=== PATIENT | female | born 1995 | race Caucasian/White ===

== ENCOUNTER 2017-04-21 21:14 | Emergency (ER) | payer OTHER ==
[~2017-04-21] VITALS: Ht 165.1 cm; Wt 54.3 kg
[~2017-04-21 21:14] MED LIST: ALBUAER2 INH; LEVE500T PO
[2017-04-21 21:19] VITALS: Ht 165.1 cm; Wt 54.3 kg
[2017-04-21] MEDS ORDERED: IBUPROFEN 600 MG TAB PO STA (21:29)
[2017-04-21] MEDS ORDERED: VNTHFA/IN INH (21:41)
--- NOTE | 2017-04-21 22:02 | EMERGENCY ROOM VISIT NOTE ---
ED Visit Note First contact with patient: 21:24 CHIEF COMPLAINT: Wrist injury HISTORY OF PRESENT ILLNESS: This 21 yo patient presents to the emergency department with mother complaining of pain in the left wrist after getting it caught between the cheese and watermelons at work. This is a work-related injury. The patient is able to move their wrist. The patient states the pain is throbbing and 5/10. No laceration, no weakness. No numbness or tingling. The patient denies any other injury. The patient is able to move their fingers and elbow without difficulty. The patient has not had a previous fracture to this wrist. The patient has taken nothing for the pain. REVIEW OF SYSTEMS: A 6 system review of systems was performed with positives and pertinent negatives in the HPI. ALLERGIES: sulfa MEDICATIONS: reviewed PMH: Seizure disorder SOCIAL HISTORY: No drug use PHYSICAL EXAM: Vital Signs: Reviewed Nurse's notes, vital signs stable. GENERAL : Pleasant female, in no acute distress, but appears to be in pain, well- developed, well-neurished. NEURO: Alert and oriented to person place and time. Normal sensation to light and sharp touch. MUSCULOSKELETAL: There is no deformity of the left wrist. There is tenderness and edema over distal ulna. There is no snuff box tenderness. Range of motion is intact. There is no tenderness of the elbow, hand or fingers. Time Study Clerk strength 5/5. Radial pulse 2+. SKIN: Normal and intact. The hand is warm and well perfused with capillary refill less than 2 seconds. EMERGENCY DEPARTMENT COURSE: I examined the patient. An X-ray of the left wrist was reviewed by myself and attending and showed no fracture. Ice pack and Motrin was given. She was advised to follow-up with orthopedics if symptoms persist or here in the ER sooner for severe pain, numbness, tingling, worsening signs or symptoms or as needed. She was advised to make sure this is approved to her work as this is a work related injury. The patient was discharged home in good condition. DIAGNOSIS: #1 Wrist injury, left #2 work-related injury DISCHARGE INSTRUCTIONS & TREATMENT: As below Current/Historical Medications Scheduled Levetiractam (Levetiracetam), 500 MG PO BID Scheduled PRN Albuterol Hfa (Ventolin Hfa), 2 PUFFS INH QID PRN for Wheezing Allergies Coded Allergies: Sulfa Drugs (Verified Allergy, Unknown, HIVES, 04/21/17) Vital Signs Date Time Temp Pulse Resp B/P (MAP) Pulse Ox O2 Delivery O2 Flow Rate FiO2 04/21/17 21:19 37.1 80 16 116/64 97 Room Air Medications Administered Medications (Trade) Dose Ordered Sig/Annmarie Route Start Time Stop Time Status Last Admin Dose Admin Ibuprofen (Motrin Tab) 600 mg NOW STAT PO 04/21/17 21:29 04/21/17 21:31 DC 04/21/17 21:55 600 MG Departure Information Impression Primary Impression: Left wrist injury Additional Impression: Work related injury Dispostion Home / Self-Care Condition GOOD Referrals Serjio Montenegro M.D. Forms WORK / SCHOOL INSTRUCTIONS, HOME CARE DOCUMENTATION FORM, IMPORTANT VISIT INFORMATION Patient Instructions [facility] Additional Instructions Ibuprofen(Motrin, Advil) may be used for fever or pain. Use 600mg every six hours as needed. Take with food. Avoid using more than 2400mg in a 24 hour period. Do not use 2400mg per day for more than three consecutive days without physician direction. Prolonged inappropriate use can lead to stomach upset or ulcers. This medication can be taken if you need to drive, work, or perform activities which may be dangerous when taking narcotic pain medication. (AND/OR) Acetaminophen(Tylenol) may be used for fever or pain. Use 1000mg every six hours as needed. Avoid using more than 3000mg in a 24 hour period. This medication can be taken if you need to drive, work, or perform activities which may be dangerous when taking narcotic pain medication. Ice compresses for 20 minutes at a time four times daily for 2-3 days. Rest and elevate your injury. Continue current medications. Return to the ER immediately for any numbness, tingling, severe pain, extreme swelling in the extremity or as needed. Call Orthopedics in 3-5 days if symptoms persist to arrange follow up for your injury. Make sure this is improved through your work as this is a work related injury. Problem Qualifiers
[2017-04-21 22:11] VITALS: BP 116/64; PULSE 80; TEMP 37.1; O2SAT 97
--- NOTE | 2017-04-21 22:12 | DIAGNOSTIC IMAGING REPORT ---
LEFT WRIST MIN 3 VIEWS ROUTINE CLINICAL HISTORY: Wrist pain following injury. COMPARISON: Left wrist radiographs August 05, 2013. FINDINGS: Alignment of the left wrist is anatomic. There is no acute fracture. Distal left radius and ulna are unremarkable. IMPRESSION: No acute fracture or dislocation of the left wrist. Electronically signed by: Mason Milligan M.D. 04/21/2017 10:11 PM Dictated Date/Time: 04/21/2017 10:10 PM
== END 2017-04-21 22:11 | disposition home or self-care (01) ==
LOC: C.EDB 21:16 → C.EDD 22:11
DX: S69.92XA Unspecified injury of left wrist, hand and finger(s), initial encounter (principal); W23.1XXA Caught, crushed, jammed, or pinched between stationary objects, initial encounter; Y99.0 Civilian activity done for income or pay; G40.909 Epilepsy, unspecified, not intractable, without status epilepticus

== ENCOUNTER → 2017-06-17 | Outpatient (CLI) | payer OTHER ==
[~2017-06-17] MED LIST changes: -ALBUAER2 INH; +VNTHFA/IN INH
[2017-06-17 15:49] LABS: BASO % 0.6 %; BASO ABS # 0.03 K/uL (0-0.2); COMPLETE YES; EOS % 1.7 %; HEMATOCRIT 39.7 % (37-47); IG% 0.4 %; LYMPH % 25.9 %; LYMPH ABS # 1.38 K/uL (1.2-3.4); MEAN CELL VOLUME 88.2 fL (80-100); MEAN CORPUSCULAR HEMOGLOBIN 28.9 pg (25-34); MEAN CORPUSCULAR HGB CONC 32.7 g/dl (32-36); MEAN PLATELET VOLUME 9.7 fL (7.4-10.4); MONO % 6.4 %; PLATELET COUNT 323 K/uL (130-400); WHITE BLOOD COUNT 5.33 K/uL (4.8-10.8)
[2017-06-17 16:22] LABS: ALT/SGPT 16 U/L (12-78); BLOOD UREA NITROGEN 12 mg/dl (7-18); BUN/CREATININE RATIO 13.9 (10-20); CALCIUM 9.2 mg/dl (8.5-10.1); CARBON DIOXIDE 30 mmol/L (21-32); CHLORIDE 105 mmol/L (98-107); CREATININE 0.85 mg/dl (0.60-1.20); GLUCOSE 80 mg/dl (70-99); POTASSIUM 3.6 mmol/L (3.5-5.1); SODIUM 140 mmol/L (136-145)
[2017-06-17 16:33] LABS: ALB/GLOB RATIO 1.1 (0.9-2); ALKALINE PHOSPHATASE 77 U/L (45-117); AST/SGOT 17 U/L (15-37); THYROID STIMULATING HORMONE 0.869 uIu/ml (0.300-4.500)
== END | disposition home or self-care (01) ==
LOC: C.LAB1850 14:10
PROVIDERS: ATTEND Internal Medicine
DX: Z71.3 Dietary counseling and surveillance (principal); G40.909 Epilepsy, unspecified, not intractable, without status epilepticus

== ENCOUNTER 2017-11-26 17:33 | Emergency (ER) | payer OTHER ==
[~2017-11-26] VITALS: Ht 165.1 cm; Wt 55.8 kg
[2017-11-26 17:37] VITALS: TEMP 36.6; Ht 165.1 cm; Wt 55.8 kg
--- NOTE | 2017-11-26 18:01 | EMERGENCY ROOM VISIT NOTE ---
ED Visit Note First contact with patient: 17:41 CHIEF COMPLAINT: Tampon stuck in vagina HISTORY OF PRESENT ILLNESS: This 22-year-old female patient presents to the emergency department 6 hours after insertion of a tampon to her vagina. The patient states this evening, she was attempting to remove the tampon, but was unable to locate the string. She states she believes the tampon has gotten stuck within her vagina. She denies any abnormal bleeding, pelvic pain or cramping, vaginal discharge, or dysuria. This has never happened in the past. The patient came immediately to the emergency department when she was unable to locate the tampon. REVIEW OF SYSTEMS: A 6 system review of systems was performed with positives and pertinent negatives listed in the history of present illness. All other systems were reviewed and are negative. ALLERGIES: Sulfa MEDICATIONS: Keppra PMH: Epilepsy SOCIAL HISTORY: The patient lives locally with family. She denies drug, alcohol , tobacco use. PHYSICAL EXAM: VITALS: Vitals are noted on the nurse's note and reviewed by myself. Vital signs stable. GENERAL: This is a 22-year-old white female, in no acute distress, nondiaphoretic, well-developed well-nourished. SCREENING TECH - (An RN nurse glassware maker demonstrator was present throughout the entire SCREENING TECH procedure.) - MONS - Umair Stage V. No lesions or growths noted. No palpable inguinal lymph nodes. - VULVA - skin color consistent with surrounding structures. No signs of irritation, edema, lesions, growths, or discharge. No vulvar or clitoral adhesions. No tenderness to palpation. - PERINEUM - No growths or lesions. Skin intact without breakdown or scars. - BARTHOLIN'S GLANDS/SKENE'S GLANDS - No enlargement or discharge noted. No tenderness with palpation. - URETHRA - No erythema, edema, discharge, or blood noted. SPECULUM EXAM: - Water-soluble lubricant was applied to the plastic speculum and inserted into the vagina in a downward fashion towards the location of the cervix. When resistance was met, the speculum was opened to visualize the foreign body/ tampon. This was easily removed with sponge forceps. The cervical os was closed and no drainage. No lesions, masses, or purulent discharge noted. The speculum was slowly removed to visualize the vaginal hoffmann. No lesions, masses, or excoriations noted. Pt tolerated the procedure well and voiced no discomfort throughout the procedure. EMERGENCY DEPARTMENT COURSE: The patient was seen and evaluated as above. Verbal consent was obtained to perform the vaginal examination and for removal of the foreign body. The tampon was removed without complication. The patient tolerated the procedure well. Discharge instructions reviewed, the patient was discharged home in good condition. I attest that I have personally reviewed the patient's current medication list. Patient was found to have normal blood pressure on screening and does not require follow-up. Differential diagnosis: foreign body in vagina, infection, STD, and others DIAGNOSIS: Foreign body in vagina - removed Current/Historical Medications Scheduled Levetiractam (Levetiracetam), 500 MG PO BID Allergies Coded Allergies: Sulfa Drugs (Verified Allergy, Unknown, HIVES, 11/26/17) Vital Signs Date Time Temp Pulse Resp B/P (MAP) Pulse Ox O2 Delivery O2 Flow Rate FiO2 11/26/17 18:09 88 16 108/62 97 11/26/17 17:37 36.6 81 20 121/76 98 Room Air Departure Information Impression Primary Impression: Vaginal foreign body Dispostion Home / Self-Care Condition GOOD Referrals No Doctor, Assigned (PCP) Patient Instructions ED Foreign Body Vaginal, [facility] Additional Instructions You were seen in the emergency department today for a vaginal foreign body - Tampon. This was successfully removed. Please do not place any other foreign bodies, including tampons, into the vagina until directed otherwise by your PCP/tank hoop bender. Return to the ED for any fevers, chills, nausea, vomiting, headache, dizziness, abnormal vaginal discharge or bleeding, or other concerning symptoms. Problem Qualifiers Primary Impression: Vaginal foreign body Encounter type: initial encounter Qualified Codes: T19.2XXA - Foreign body in vulva and vagina, initial encounter
[2017-11-26 18:09] VITALS: BP 108/62; PULSE 88; O2SAT 97
== END 2017-11-26 18:09 | disposition home or self-care (01) ==
LOC: C.EDB 17:35 → C.EDD 18:09
DX: T19.2XXA Foreign body in vulva and vagina, initial encounter (principal); X58.XXXA Exposure to other specified factors, initial encounter; G40.909 Epilepsy, unspecified, not intractable, without status epilepticus; Z88.2 Allergy status to sulfonamides

== ENCOUNTER → 2017-11-29 | Outpatient (CLI) | payer OTHER ==
[~2017-11-29] MED LIST changes: -VNTHFA/IN INH
== END | disposition home or self-care (01) ==
LOC: C.LABSPEC 13:25
PROVIDERS: ATTEND Physician Assistant
DX: Z01.419 Encounter for gynecological examination (general) (routine) without abnormal findings (principal)

== ENCOUNTER → 2017-11-29 | Outpatient (CLI) | payer OTHER | END | disposition home or self-care (01) | LOC: C.PAPS 13:47 | PROVIDERS: ATTEND Physician Assistant | DX: Z01.419 Encounter for gynecological examination (general) (routine) without abnormal findings (principal) ==

== ENCOUNTER 2018-05-09 17:04 | Emergency (ER) | payer OTHER ==
[~2018-05-09] VITALS: Ht 165.1 cm; Wt 57.0 kg
[~2018-05-09 17:04] MED LIST changes: +VNTHFA/IN INH
[2018-05-09 17:18] VITALS: TEMP 36.4; Ht 165.1 cm; Wt 57.0 kg
--- NOTE | 2018-05-09 18:09 | EMERGENCY ROOM VISIT NOTE ---
History Report prepared by Yash: Wilber Arita Under the Supervision of: Dr. Zhang Xiong M.D. First contact with patient: 18:05 Chief Complaint: ABDOMINAL PAIN Stated Complaint: PAIN IN RIGHT SIDE AB Nursing Triage Summary: Patient ambulatory to triage with an upright and steady gait, states "I started to having pain in my right lower abdomen last night. It went away for a while. Today, around 1530, the pain started to come back." Patient denies any nausea, vomiting, diarrhea, constipation, urinary symptoms, vaginal discharge or bleeding. History of Present Illness The patient is a 22 year old female who presents to the Emergency Room with complaints of intermittent abdominal pain that started yesterday that she describes as a sharp sensation. Pain is located in the right lower quadrant. She states the pain is sharp. No radiation of the pain. She states the pain started last night. The patient denies nausea, vomiting, hematochezia, hematuria, fevers, vaginal bleeding and vaginal discharge. Source of History: patient Onset: Yesterday Position: abdomen Quality: sharp Timing: intermittent Associated Symptoms: No fevers, No nausea, No vomiting, No melena, No hematochezia, No urinary symptoms Review of Systems See HPI for pertinent positives and negatives. A total of ten systems were reviewed and were otherwise negative. Family History Diabetes mellitus Social History Smoking Status: Never Smoker Alcohol Use: none Drug Use: none Marital Status: single Occupation Status: student Current/Historical Medications Scheduled Levetiractam (Levetiracetam), 500 MG PO BID Scheduled PRN Albuterol Hfa (Ventolin Hfa), 2 PUFFS INH Q6H PRN for Shortness of Breath Allergies Coded Allergies: Sulfa Drugs (Verified Allergy, Unknown, HIVES, 05/09/18) Physical Exam Vital Signs Date Time Temp Pulse Resp B/P (MAP) Pulse Ox O2 Delivery O2 Flow Rate FiO2 05/09/18 20:35 76 18 105/67 98 05/09/18 19:53 58 16 111/71 99 Room Air 05/09/18 19:03 51 16 104/66 97 Room Air 05/09/18 17:18 36.4 62 16 130/77 98 Room Air Physical Exam Physical Exam GENERAL: She is oriented to person, place, and time. She appears well- developed and well-nourished. She does not appear distressed. HENT: Exam performed. Head: Normocephalic and atraumatic. Right Ear: External ear normal. No mastoid tenderness. Left Ear: External ear normal. No mastoid tenderness. Mouth/Throat: The oropharynx is clear and moist. No trismus in the jaw. No dental abscesses or uvula swelling. No oropharyngeal exudate or tonsillar abscesses. EYES: Conjunctivae and EOM are normal. Pupils are equal, round, and reactive to light. Right eye exhibits no discharge. Left eye exhibits no discharge. No scleral icterus. NECK: Normal range of motion. Neck supple. No JVD present. No spinous process tenderness present. No carotid bruit present. No rigidity. No tracheal deviation and normal range of motion present. No Brudzinski's sign and no Kernig 's sign noted. CV: Normal rate, regular rhythm, normal heart sounds and intact distal pulses. There is no peripheral edema. Palpable radial pulses bue. PULM/CHEST: Effort normal and breath sounds normal. No respiratory distress. No stridor. She has no wheezes. She has no rales. Chest Wall: She exhibits no tenderness. ABD: The abdomen is soft. Bowel sounds are normal. She has no distension. No mass is present. There is no tenderness. There is no rebound, no guarding, no Sainz's sign and no tenderness at McBurney's point. Rovsig positive. Pain and palpation to RLQ and LLQ. MUSC/SKEL: Normal range of motion. There is no peripheral edema, tenderness or deformity. LYMPH: No cervical adenopathy. NEURO: She is alert and oriented to person, place, and time. She has normal strength. No cranial nerve deficit or sensory deficit. Coordination and gait normal. GCS eye subscore is 4. GCS verbal subscore is 5. GCS motor subscore is 6. Cerebellar tests wnl. SKIN: Skin is warm and dry. She is not diaphoretic. PSYCH: She has a normal mood and affect. Behavior is normal. Judgment and thought content normal. Medical Decision & Procedures ER Provider Diagnostic Interpretation: Radiology results as stated below per my review and radiologist interpretation: PELVIC ULTRASOUND, TRANSABDOMINAL AND TRANSVAGINAL HISTORY: Right lower quadrant pain. COMPARISON: None. FINDINGS: Uterus: 7.0 x 3.8 x 4.3 cm. No uterine masses. Endometrial stripe: 6 mm in thickness. Right ovary: Normal in size and demonstrates normal color flow. Left ovary: Normal in size and demonstrates normal color flow. Miscellaneous:Trace pelvic free fluid. IMPRESSION: No significant abnormality identified within the pelvis. Trace pelvic free fluid which is likely physiologic. Electronically signed by: Po Tabares M.D. 05/09/2018 8:00 PM Dictated Date/Time: 05/09/2018 7:[address] OF THE ABDOMEN AND PELVIS WITH CONTRAST CLINICAL HISTORY: Right lower quadrant abdominal pain. COMPARISON STUDY: Abdominal ultrasound February 09, 2012. TECHNIQUE: Following IV administration of 94 mL of Optiray-320, axial images of the abdomen and pelvis were obtained from the lung bases to the proximal femurs. Images were reviewed in the axial, sagittal, and coronal planes. IV contrast was administered without complication. A dose lowering technique was utilized adhering to the principles of ALARA. CT DOSE: 265.71 mGy.cm FINDINGS: Lung bases are clear. Liver, spleen, adrenal glands, kidneys and pancreas are normal. There is no biliary or pancreatic ductal dilatation. There is no peripancreatic or pericholecystic infiltration. There is no hydronephrosis. Both nephrograms are symmetric. Trace fluid within the pelvis is noted. There is mild distention of the bladder. The caliber and wall thickness of small and large bowel are normal. The appendix is normal. IMPRESSION: 1. Normal appendix. No bowel obstruction. 2. Trace fluid within pelvis which is likely physiologic. Electronically signed by: Mason Milligan M.D. 05/09/2018 6:47 PM Dictated Date/Time: 05/09/2018 6:42 PM Laboratory Results 05/09/18 18:25 Red Blood Count 4.37, Mean Corpuscular Volume 87.9, Mean Corpuscular Hemoglobin 29.3, Mean Corpuscular Hemoglobin Concent 33.3, Mean Platelet Volume 10.0, Neutrophils (%) (Auto) 72.7, Lymphocytes (%) (Auto) 16.7, Monocytes (%) (Auto) 8.8, Eosinophils (%) (Auto) 1.1, Basophils (%) (Auto) 0.5, Neutrophils # (Auto) 4.71, Lymphocytes # (Auto) 1.08, Monocytes # (Auto) 0.57, Eosinophils # (Auto) 0.07, Basophils # (Auto) 0.03 05/09/18 18:25 Test 05/09/18 18:25 05/09/18 19:03 White Blood Count 6.47 K/uL (4.8-10.8) Red Blood Count 4.37 M/uL (4.2-5.4) Hemoglobin 12.8 g/dL (12.0-16.0) Hematocrit 38.4 % (37-47) Mean Corpuscular Volume 87.9 fL (80-100) Mean Corpuscular Hemoglobin 29.3 pg (25-34) Mean Corpuscular Hemoglobin Concent 33.3 g/dl (32-36) Platelet Count 244 K/uL (130-400) Mean Platelet Volume 10.0 fL (7.4-10.4) Neutrophils (%) (Auto) 72.7 % Lymphocytes (%) (Auto) 16.7 % Monocytes (%) (Auto) 8.8 % Eosinophils (%) (Auto) 1.1 % Basophils (%) (Auto) 0.5 % Neutrophils # (Auto) 4.71 K/uL (1.4-6.5) Lymphocytes # (Auto) 1.08 K/uL (1.2-3.4) Monocytes # (Auto) 0.57 K/uL (0.11-0.59) Eosinophils # (Auto) 0.07 K/uL (0-0.5) Basophils # (Auto) 0.03 K/uL (0-0.2) RDW Standard Deviation 40.8 fL (36.4-46.3) RDW Coefficient of Variation 12.7 % (11.5-14.5) Immature Granulocyte % (Auto) 0.2 % Immature Granulocyte # (Auto) 0.01 K/uL (0.00-0.02) Anion Gap 8.0 mmol/L (3-11) Est Creatinine Clear Calc Drug Dose 81.7 ml/min Estimated GFR () 95.6 Estimated GFR (Non- 82.5 BUN/Creatinine Ratio 9.2 (10-20) Calcium Level 9.0 mg/dl (8.5-10.1) Total Bilirubin 0.5 mg/dl (0.2-1) Direct Bilirubin 0.1 mg/dl (0-0.2) Aspartate Amino Transf (AST/SGOT) 15 U/L (15-37) Alanine Aminotransferase (ALT/SGPT) 19 U/L (12-78) Alkaline Phosphatase 61 U/L (45-117) Total Protein 7.6 gm/dl (6.4-8.2) Albumin 3.9 gm/dl (3.4-5.0) Lipase 80 U/L (73-393) Urine Color YELLOW Urine Appearance CLEAR (CLEAR) Urine pH 5.5 (4.5-7.5) Urine Specific Guild 1.018 (1.000-1.030) Urine Protein NEG (NEG) Urine Glucose (UA) NEG (NEG) Urine Ketones NEG (NEG) Urine Occult Blood NEG (NEG) Urine Nitrite NEG (NEG) Urine Bilirubin NEG (NEG) Urine Urobilinogen NEG (NEG) Urine Leukocyte Esterase NEG (NEG) Urine Test NEG (NEG) Laboratory results reviewed by me ED Course 1806: The patient was evaluated in room B3. A complete history and physical exam was performed. 1904: The patient's vital signs are stable. Her labs and imaging tests are within normal limits. I repeated the abdomen exam and she was still having intermittent pain in the RLQ. I will order an ultrasound to rule out ovarian torsion. 2023: Vital signs are stable. Ultrasound was negative so the patient will be discharged and follow up with PCP. Patient denies any vaginal bleeding or vaginal discharge, she states she is in a monogamous relationship and there is no risk for STD. Pelvic exam declined. DISCHARGE - Plan of care discussed with patient and questions answered. The patient was given both verbal and printed discharge instructions. The patient verbalized understanding and ability to comply. The patient is to seek outpatient follow up as noted in the discharge instructions. The patient verbalized understanding and ability to comply. The patient is discharged in stable condition. The patient was instructed to return for worsening symptoms. Medical Decision 1806: The patient was evaluated in room B3. A complete history and physical exam was performed. 1904: The patient's vital signs are stable. Her labs and imaging tests are within normal limits. I repeated the abdomen exam and she was still having intermittent pain in the RLQ. I will order an ultrasound to rule out ovarian torsion. 2023: Vital signs are stable. Ultrasound was negative so the patient will be discharged and follow up with PCP. Patient denies any vaginal bleeding or vaginal discharge, she states she is in a monogamous relationship and there is no risk for STD. Pelvic exam declined. DISCHARGE - Plan of care discussed with patient and questions answered. The patient was given both verbal and printed discharge instructions. The patient verbalized understanding and ability to comply. The patient is to seek outpatient follow up as noted in the discharge instructions. The patient verbalized understanding and ability to comply. The patient is discharged in stable condition. The patient was instructed to return for worsening symptoms. Medication Reconcilliation Current Medication List: was personally reviewed by me Blood Pressure Screening Patient's blood pressure: Normal blood pressure Impression Primary Impression: Right lower quadrant abdominal pain Scribe Attestation The scribe's documentation has been prepared under my direction and personally reviewed by me in its entirety. I confirm that the note above accurately reflects all work, treatment, procedures, and medical decision making performed by me. The chart was completed utilizing [employer] Speech voice recognition software. Grammatical errors, random word insertions, pronoun errors, and incomplete sentences are an occasional consequence of this system due to software limitations, ambient noise, and hardware issues. Any formal questions or concerns about the content, text, or information contained within the body of this dictation should be directly addressed to the physician for clarification. Departure Information Dispostion Home / Self-Care Referrals RV. Da Silva MD (PCP) Forms HOME CARE DOCUMENTATION FORM, IMPORTANT VISIT INFORMATION Patient Instructions [facility]
[2018-05-09] MEDS ORDERED: OPTIRAY 320 IV PRN (18:15)
[2018-05-09 18:36] LABS: BASO % 0.5 %; BASO ABS # 0.03 K/uL (0-0.2); EOS % 1.1 %; EOS ABS # 0.07 K/uL (0-0.5); HEMATOCRIT 38.4 % (37-47); HEMOGLOBIN 12.8 g/dL (12.0-16.0); IG# 0.01 K/uL (0.00-0.02); LYMPH % 16.7 %; LYMPH ABS # 1.08 K/uL (1.2-3.4); MEAN CELL VOLUME 87.9 fL (80-100); MEAN CORPUSCULAR HEMOGLOBIN 29.3 pg (25-34); MEAN CORPUSCULAR HGB CONC 33.3 g/dl (32-36); MONO % 8.8 %; MONO ABS # 0.57 K/uL (0.11-0.59); NEUT % 72.7 %; NEUT ABS # 4.71 K/uL (1.4-6.5); PLATELET COUNT 244 K/uL (130-400); RED CELL DISTRIBUTION WIDTH CV 12.7 % (11.5-14.5); RED CELL DISTRIBUTION WIDTH SD 40.8 fL (36.4-46.3); WHITE BLOOD COUNT 6.47 K/uL (4.8-10.8)
--- NOTE | 2018-05-09 18:48 | DIAGNOSTIC IMAGING REPORT ---
CT OF THE ABDOMEN AND PELVIS WITH CONTRAST CLINICAL HISTORY: Right lower quadrant abdominal pain. COMPARISON STUDY: Abdominal ultrasound February 09, 2012. TECHNIQUE: Following IV administration of 94 mL of Optiray-320, axial images of the abdomen and pelvis were obtained from the lung bases to the proximal femurs. Images were reviewed in the axial, sagittal, and coronal planes. IV contrast was administered without complication. A dose lowering technique was utilized adhering to the principles of ALARA. CT DOSE: 265.71 mGy.cm FINDINGS: Lung bases are clear. Liver, spleen, adrenal glands, kidneys and pancreas are normal. There is no biliary or pancreatic ductal dilatation. There is no peripancreatic or pericholecystic infiltration. There is no hydronephrosis. Both nephrograms are symmetric. Trace fluid within the pelvis is noted. There is mild distention of the bladder. The caliber and wall thickness of small and large bowel are normal. The appendix is normal. IMPRESSION: 1. Normal appendix. No bowel obstruction. 2. Trace fluid within pelvis which is likely physiologic. Electronically signed by: Mason Milligan M.D. 05/09/2018 6:47 PM Dictated Date/Time: 05/09/2018 6:42 PM
[2018-05-09 18:55] LABS: ALBUMIN 3.9 gm/dl (3.4-5.0); CREATININE 0.98 mg/dl (0.60-1.20); POTASSIUM 3.6 mmol/L (3.5-5.1); TOTAL PROTEIN 7.6 gm/dl (6.4-8.2)
--- NOTE | 2018-05-09 20:01 | DIAGNOSTIC IMAGING REPORT ---
PELVIC ULTRASOUND, TRANSABDOMINAL AND TRANSVAGINAL HISTORY: Right lower quadrant pain. COMPARISON: None. FINDINGS: Uterus: 7.0 x 3.8 x 4.3 cm. No uterine masses. Endometrial stripe: 6 mm in thickness. Right ovary: Normal in size and demonstrates normal color flow. Left ovary: Normal in size and demonstrates normal color flow. Miscellaneous:Trace pelvic free fluid. IMPRESSION: No significant abnormality identified within the pelvis. Trace pelvic free fluid which is likely physiologic. Electronically signed by: Po Tabares M.D. 05/09/2018 8:00 PM Dictated Date/Time: 05/09/2018 7:59 PM
[2018-05-09 20:35] VITALS: BP 105/67; PULSE 76; O2SAT 98
== END 2018-05-09 20:35 | disposition home or self-care (01) ==
LOC: C.EDB 17:06
DX: R10.31 Right lower quadrant pain (principal); Z88.2 Allergy status to sulfonamides

== ENCOUNTER 2023-05-18 07:38 | Inpatient (IN) ==
--- NOTE | 2023-05-18 07:53 | History & Physical Report ---
Date of Service May 18, 2023 Assessment & Plan (1) Encounter for induction of labor: Plan: labor management (2) Asthma: Plan: albuterol PRN (3) Epilepsy: Plan: Keppra 1g BID (4) Mitral regurgitation: Plan: No concerns per cardiology Plan 27 yo at 40w2d with PMHx epilepsy on keppra, asthma, mitral regurg, thyromegaly here for induction of labor. Admission and Anticipated Discharge Date Admission Date: May 18, 2023 History of Present Illness Primary Care Provider: Bernardino Pandey MD Radha is a 27 yo at 40w2d with PMHx epilepsy on keppra, asthma, mitral regurg, thyromegaly here for induction of labor. She had a choudhary bulb placed 05/17/23, tolerated well, came out this AM. She is GBS negative. Mom is doing well. No seizure activity for at least one year. No concerns from cardiology re: mitral regurgitation. FOB is present. Allergies Allergy/AdvReac Type Severity Reaction Status Date / Time Tetanus Vaccines and Toxoid Allergy Severe BECAME Verified 05/17/23 14:45 SHORT OF BREATH Sulfa (Sulfonamide Allergy Unknown HIVES Verified 05/17/23 14:45 Antibiotics) Home Medications Medication Instructions Recorded Confirmed Type albuterol sulfate 90 mcg/actuation 2 inh inhalation QID PRN shortness 10/13/21 05/18/23 Rx aerosol inhaler of breath or wheezing #1 g folic acid 1 mg tablet 1 mg PO DAILY 02/25/22 05/18/23 History prenat.vits,terry,[id number] 1 tab PO DAILY 10/15/22 05/18/23 History levetiracetam 1,000 mg tablet 1,000 mg PO BID 30 days #60 tabs 03/03/23 05/18/23 Rx ferrous sulfate 325 mg (65 mg 325 mg PO DAILY 05/17/23 05/18/23 History iron) tablet (iron) Past Med/Surg History Medical History (Updated 05/18/23 @ 08:26 by Alvarez Mcgraw DO) Asthma Encounter for monitoring anticonvulsant therapy Enlargement of thyroid Epilepsy History of abnormal electrocardiogram Lunate fracture, closed Mitral regurgitation Mouth lesion Right lower quadrant abdominal pain Seizure disorder Syncope Surgical History S/P wisdom tooth extraction Family History Aunt Thyroid cancer Breast cancer great Mother Diabetes Thyroid disease Asthma Thyroid cancer Uncle Schizoaffective disorder Grandmother (Maternal) Thyroid cancer Other Hypercholesterolemia Hypertension Denies family history of Ovarian cancer Prostate cancer Myocardial infarction Colorectal cancer Stroke Social History Smoking Status: Never smoker Second Hand Exposure: Yes (at work); Do You Dip or Chew Tobacco: No; Hx Alcohol Use: No Hx Substance Use: No Preferred Language: Bahamian Communication Ability: Effective Visual Impairment: No Limitations Hearing Ability: Normal Medicine Tech Required: No Beliefs That Will Affect Care: None marital status: marital status details: Oskar- [phone], Spouse: Meka Current Living Situation: Spouse Current Living Situation Comment: lives with spouse and 2 dogs, current occupational status: employed 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 [employer] Other Information That Helps Us Care for You: No Feels Safe at Home: Yes Safety Concerns: Feels Safe At This Time Childhood Exposure to Second-Hand Smoke: No Dental Care, Regularly: Yes Physical Activity Frequency: 5-6 Times per Week Physical Activity Frequency Comment: running Seatbelt Use: always Sunscreen Use: Yes Assistive Devices: Glasses Review of Systems Review of Systems: reviewed, per HPI Physical Exam Physical Exam: General: patient resting comfortably, NAD, non-toxic in appearance, AA&O x 4, answers questions appropriately Skin: warm, dry, intact HEENT: NC/AT, anicteric sclera, conjunctiva without injection, moist mucus membranes Heart: +S1/S2, regular, no m/r/g Lungs: equal air entry bilaterally, no rales/rhonchi/wheezes Abd: +BS, soft, NT/ND, gravid uterus Ext: warm, no clubbing/cyanosis or edema Neuro: nonfocal, patient AA&O x 4, speech intact, no facial droop, moving all extremities on command. Results & Data Results & Data Vital Signs (Past 12 Hours) Vital Signs Pulse BP 05/18/23 07:46 80 128/69 Supervising Physician Co-Signing Physician Notes Resident Physician Supervision Note: I interviewed and examined the patient. Discussed with Dr. Mcgraw and agree with findings and plan as documented in the note. Any exceptions or clarifications are listed here: 27yo @ 40 11/03, IOL. Now s/p choudhary bulb, start pitocin. Patient agreeable with plan. Cervix exam /-2/soft/mid. Documented By: Tami Wilson, DO Resident Activity Tracking Resident Involvement: Resident Care Provided Care Provided: Adult Hospital Medicine (3) Epilepsy Epilepsy type: unspecified Intractability: not intractable Status epilepticus: without status epilepticus Qualified Code(s): G40.909 - Epilepsy, unspecified, not intractable, without status epilepticus
[2023-05-18] MEDS ORDERED: OXYTOCIN 30 UNITS/500 ML BAG IV PRN ×2 (08:18)
[2023-05-18] MEDS ORDERED: LIDOCAINE 1% LOCAL 20 ML VIAL INFIL PRN (08:18)
[2023-05-18] MEDS ORDERED: ALBUTEROL HFA 8 GM INHALER INH PRN (08:21)
[2023-05-18 08:56] LABS: Hematocrit (blood only) 37.8 % (37.0-47.0); Hemoglobin 12.6 g/dl (12.0-16.0); Mean Corpuscular Hemoglobin 29.7 pg (25.0-34.0); Mean Corpuscular Hgb Conc 33.3 g/dL (32.0-36.0); Mean Corpuscular Volume 89.2 fL (80.0-100.0); Mean Platelet Volume 11.2 fL (9.4-12.4); Platelet Count 210 K/uL (130-400); RDW Coefficient of Variation 13.8 % (11.5-14.5); Red Blood Count 4.24 M/uL (4.20-5.40)
[2023-05-18] MEDS ORDERED: FERROUS SULFATE 325 MG TAB PO SCH (09:00)
[2023-05-18] MEDS ORDERED: PRENATAL VITAMIN 1 TAB PO SCH (09:00)
[2023-05-18] MEDS ORDERED: FOLIC ACID 1 MG TAB PO SCH (09:00)
[2023-05-18] MEDS: levETIRAcetam 500 MG TAB PO SCH ×2 (09:26→20:59)
[2023-05-18] MEDS: LACTATED RINGER'S 1,000 ML IV PRN ×3 (09:47→19:58)
[2023-05-18] MEDS ORDERED: fentaNYL citrate PF 100 MCG/2 ML VIAL ONE (14:55)
[2023-05-18] MEDS ORDERED: BUPIVACAINE 0.25% PF 30 ML VIAL ONE (14:56)
[2023-05-18] MEDS ORDERED: ePHEDrine sulfate 50 MG/ML AMP ONE (14:56)
[2023-05-18] MEDS ORDERED: SODIUM CHLORIDE 0.9% PF INJ 10 ML VIAL ONE (14:56)
[2023-05-18] MEDS ORDERED: LIDOCAINE 2%/EPINEPHRINE 1:200,000 20 ML PF ONE (14:56)
[2023-05-18] MEDS ORDERED: fentaNYL 2MCG/ML ROPIVACAINE 1.25MG/ML 100 ML BAG EPI ONE (14:57)
[2023-05-18] MEDS ORDERED: NALBUPHINE HCL INJ 10 MG/ML AMP IV PRN (15:17)
[2023-05-18] MEDS ORDERED: LIDOCAINE 2%/EPINEPHRINE 1:200,000 20 ML PF EPI STA (15:17)
[2023-05-18] MEDS ORDERED: fentaNYL citrate PF 100 MCG/2 ML VIAL EPI PRN (15:17)
[2023-05-18] MEDS ORDERED: ROPIVACAINE 0.5% PF 5 MG/ML 20 ML VIAL EPI PRN (15:17)
[2023-05-18] MEDS ORDERED: SODIUM CHLORIDE 0.9% PF INJ 10 ML VIAL EPI PRN (15:17)
[2023-05-18] MEDS ORDERED: diphenhydrAMINE 50 MG/ML VIAL IV PRN (15:17)
[2023-05-18] MEDS ORDERED: fentaNYL 2MCG/ML ROPIVACAINE 1.25MG/ML 100 ML BAG EPI PRN (15:17)
[2023-05-18] MEDS ORDERED: BUPIVACAINE 0.25% PF 30 ML VIAL EPI PRN (15:17)
[2023-05-18] MEDS ORDERED: SODIUM CHLORIDE 0.9% PF INJ 10 ML VIAL EPI STA (15:17)
[2023-05-18] MEDS ORDERED: BUPIVACAINE 0.25% PF 30 ML VIAL EPI STA (15:17)
[2023-05-18] MEDS ORDERED: ePHEDrine sulfate 50 MG/ML AMP IV PRN (15:17)
[2023-05-18] MEDS ORDERED: NALOXONE HCL 0.4 MG/1 ML VIAL/CARP IV PRN (15:17)
[2023-05-18] MEDS ORDERED: NALOXONE HCL 1 MG in SODIUM CHLORIDE 0.9% 1000ML 1,000 ML IV PRN (15:17)
[2023-05-18] MEDS ORDERED: LIDOCAINE 2% MPF LOCAL 5 ML VIAL EPI PRN (15:17)
[2023-05-18] MEDS ORDERED: fentaNYL citrate PF 100 MCG/2 ML VIAL EPI STA (15:17)
--- NOTE | 2023-05-18 15:17 | Anesthesiology Consultation ---
Date of Service May 18, 2023 Assessment & Plan (1) Encounter for pre-operative examination: Chart Review Chart Review: Patient NOT seen in Pre Admission Testing and Acceptable Risk for Labor Epidural Consults Requested none History Height/Weight Height: 5 ft 5 in Weight: 83.461 kg Allergies Allergy/AdvReac Type Severity Reaction Status Date / Time Tetanus Vaccines and Toxoid Allergy Severe BECAME Verified 05/17/23 14:45 SHORT OF BREATH Sulfa (Sulfonamide Allergy Unknown HIVES Verified 05/17/23 14:45 Antibiotics) Medications Home Medications Medication Instructions Recorded Confirmed Last Taken albuterol sulfate 90 mcg/actuation 2 inh inhalation QID PRN shortness 10/13/21 05/18/23 03/27/23 aerosol inhaler of breath or wheezing #1 g folic acid 1 mg tablet 1 mg PO DAILY 02/25/22 05/18/23 05/17/23 21:00 prenat.vits,terry,[id number] 1 tab PO DAILY 10/15/22 05/18/23 05/17/23 21:00 levetiracetam 1,000 mg tablet 1,000 mg PO BID 30 days #60 tabs 03/03/23 05/18/23 05/18/23 06:30 ferrous sulfate 325 mg (65 mg 325 mg PO DAILY 05/17/23 05/18/23 05/17/23 21:00 iron) tablet (iron) Active Medications Generic Name Dose Route Start Last Admin Trade Name Freq PRN Reason Stop Dose Admin Ferrous Sulfate 325 mg 05/18/23 09:00 05/18/23 09:26 Ferrous Sulfate 325 Mg Tab PO 06/17/23 08:59 Not Given DAILY LUIS Folic Acid 1 mg 05/18/23 09:00 05/18/23 09:26 Folic Acid 1 Mg Tab PO 06/17/23 08:59 Not Given DAILY LUIS Oxytocin 30 units in 500 mls @ 15 mls/hr 05/18/23 08:18 05/18/23 13:30 Pitocin IV 05/20/23 08:17 0.9 units/hr .Q24H PRN 15 mls/hr Labor Induction/Augmentation Titration Protocol 0.9 UNITS/HR Lactated Ringer's 1,000 mls @ 125 mls/hr 05/18/23 08:18 05/18/23 15:02 Lr IV 05/20/23 08:17 999 mls/hr .Q8H PRN Administration L&D Protocol Protocol Levetiracetam 1,000 mg 05/18/23 09:00 05/18/23 09:26 Levetiracetam 500 Mg Tab PO 06/17/23 08:59 Not Given BID LUIS Prenat Multivit/Correctional Counselor/Iron/Folic Ac 1 tab 05/18/23 09:00 05/18/23 09:26 Vitamin 1 Tab PO 06/17/23 08:59 Not Given DAILY LUIS Past Medical History Medical History (Updated 05/18/23 @ 15:17 by Wilmer Henson DO) Asthma Encounter for monitoring anticonvulsant therapy Enlargement of thyroid Epilepsy History of abnormal electrocardiogram Lunate fracture, closed Mitral regurgitation Mouth lesion Right lower quadrant abdominal pain Seizure disorder Syncope Past Family History Family History Aunt Thyroid cancer Breast cancer great Mother Diabetes Thyroid disease Asthma Thyroid cancer Uncle Schizoaffective disorder Grandmother (Maternal) Thyroid cancer Other Hypercholesterolemia Hypertension Denies family history of Ovarian cancer Prostate cancer Myocardial infarction Colorectal cancer Stroke Past Surgical History Surgical History S/P wisdom tooth extraction Social History Smoking Status: Never smoker Do You Dip or Chew Tobacco: No Hx Alcohol Use: No Hx Substance Use: No substance use type: does not use Physical Exam Vital Signs Last Vital Signs Temp 98.2 F 05/18/23 11:02 Pulse 74 05/18/23 14:12 Resp 18 05/18/23 11:02 BP 132/80 05/18/23 14:12 Testing Laboratory Results 05/18/23 08:35
--- NOTE | 2023-05-18 16:28 | Labor Progress Brief Note ---
Date of Service May 18, 2023 Subjective Comfortable with epidural. FHT Cat 1 [place] Q 2 SVE 5-6/70/-2 AROM meconium stained fluid Continue IOL. Assessment & Plan Admission and Anticipated Discharge Date Admission Date: May 18, 2023 Results & Data Vital Signs (Past 12 Hours) Vital Signs Temp Pulse Resp BP Pulse Ox 05/18/23 07:52 36.7 C 80 18 128/69 05/18/23 16:24 64 99 05/18/23 16:19 55 L 99 05/18/23 16:15 63 130/82 05/18/23 16:14 66 98 05/18/23 16:11 57 L 118/63 05/18/23 16:09 61 97 05/18/23 16:04 58 L 98 05/18/23 16:05 58 L 116/62 05/18/23 16:01 57 L 119/62 05/18/23 15:59 67 99 05/18/23 15:56 59 L 122/62 05/18/23 15:54 63 97 05/18/23 15:49 97 05/18/23 15:49 72 05/18/23 15:49 61 112/58 L 05/18/23 15:47 64 110/60 05/18/23 15:45 68 118/62 05/18/23 15:44 68 98 05/18/23 15:43 68 113/60 05/18/23 15:41 60 111/56 L 05/18/23 15:39 70 111/56 L 96 05/18/23 15:37 74 131/77 05/18/23 15:35 57 L 126/71 05/18/23 15:34 99 05/18/23 14:12 74 132/80 05/18/23 12:56 65 107/56 L 05/18/23 12:27 62 129/67 05/18/23 11:02 18 05/18/23 11:02 36.8 C 18 05/18/23 11:03 67 123/77 05/18/23 09:50 71 132/76 05/18/23 07:46 80 128/69 Coding Level of Care Code None Diagnoses
[2023-05-18] MEDS ORDERED: ONDANSETRON INJ 2 MG/ML 2 ML VIAL IV PRN (20:00)
--- NOTE | 2023-05-18 22:50 | Labor Progress Brief Note ---
Date of Service May 18, 2023 Subjective Comfortable. FHT Cat 1 [place] Q 2-4 SVE 6//-1 per RN Continue induction Assessment & Plan Admission and Anticipated Discharge Date Admission Date: May 18, 2023 Results & Data Vital Signs (Past 12 Hours) Vital Signs Temp Pulse Resp BP Pulse Ox 05/18/23 22:46 81 94 05/18/23 22:45 82 126/56 L 94 05/18/23 22:40 79 92 05/18/23 22:30 18 05/18/23 22:30 18 05/18/23 22:35 80 92 05/18/23 22:30 93 05/18/23 22:30 78 05/18/23 22:30 75 117/57 L 05/18/23 22:25 79 92 05/18/23 22:20 77 92 05/18/23 22:15 72 92 05/18/23 22:16 72 112/55 L 05/18/23 22:10 75 92 05/18/23 22:05 74 92 05/18/23 22:00 69 18 115/56 L 92 05/18/23 21:55 74 92 05/18/23 21:50 73 92 05/18/23 21:45 72 116/55 L 93 05/18/23 21:40 70 93 05/18/23 21:35 69 96 05/18/23 21:34 68 94 05/18/23 21:31 18 05/18/23 21:31 18 05/18/23 21:30 75 106/57 L 05/18/23 21:29 70 94 05/18/23 21:24 71 96 05/18/23 21:19 72 95 05/18/23 21:14 73 97 05/18/23 21:15 73 118/55 L 05/18/23 21:09 70 99 05/18/23 21:04 65 97 05/18/23 21:00 37.0 C 68 18 117/58 L 05/18/23 20:59 70 100 05/18/23 20:54 67 98 05/18/23 20:49 61 99 05/18/23 20:46 63 115/56 L 05/18/23 20:44 61 99 05/18/23 20:39 65 100 05/18/23 20:34 60 98 05/18/23 20:30 71 18 111/57 L 05/18/23 20:29 68 97 05/18/23 20:24 68 100 05/18/23 20:19 69 98 05/18/23 20:16 65 111/62 05/18/23 20:14 66 98 05/18/23 20:09 72 100 05/18/23 20:00 18 05/18/23 20:00 18 05/18/23 20:04 69 100 05/18/23 20:02 75 124/60 05/18/23 19:59 84 99 05/18/23 19:56 91 H 90 05/18/23 19:54 78 100 05/18/23 19:49 81 100 05/18/23 19:44 88 100 05/18/23 19:45 92 H 110/55 L 05/18/23 19:39 79 100 05/18/23 19:34 83 99 05/18/23 19:29 87 98 05/18/23 19:30 92 H 18 120/73 05/18/23 19:24 86 97 05/18/23 19:19 96 H 98 05/18/23 19:14 86 98 05/18/23 19:15 80 121/70 05/18/23 19:00 18 05/18/23 19:00 36.7 C 18 05/18/23 19:09 80 100 05/18/23 19:04 70 100 05/18/23 19:02 70 128/74 05/18/23 18:59 67 100 05/18/23 18:54 65 100 05/18/23 18:49 64 100 05/18/23 18:44 68 100 05/18/23 18:45 65 125/69 05/18/23 18:39 75 100 05/18/23 18:35 18 05/18/23 18:35 36.7 C 18 05/18/23 18:34 69 100 05/18/23 18:31 57 L 115/60 05/18/23 18:29 72 97 05/18/23 18:24 65 98 05/18/23 18:19 58 L 99 05/18/23 18:16 59 L 112/55 L 05/18/23 18:14 70 97 05/18/23 18:09 59 L 99 05/18/23 18:04 66 99 05/18/23 18:02 18 05/18/23 18:02 18 05/18/23 18:00 56 L 114/57 L 05/18/23 17:59 62 100 05/18/23 17:54 69 100 05/18/23 17:33 18 05/18/23 17:33 36.7 C 18 05/18/23 16:32 18 05/18/23 16:32 18 05/18/23 17:03 18 05/18/23 17:03 18 05/18/23 17:49 61 100 05/18/23 17:46 61 117/58 L 05/18/23 17:44 59 L 99 05/18/23 17:39 55 L 100 05/18/23 17:34 59 L 100 05/18/23 17:29 58 L 99 05/18/23 17:30 57 L 110/60 05/18/23 17:24 58 L 97 05/18/23 17:19 59 L 97 05/18/23 17:16 63 111/64 05/18/23 17:14 80 98 05/18/23 17:09 57 L 96 05/18/23 17:04 61 98 05/18/23 16:59 58 L 98 05/18/23 17:00 59 L 120/71 05/18/23 16:54 64 98 05/18/23 16:49 64 99 05/18/23 16:46 60 115/65 05/18/23 16:44 60 98 05/18/23 16:39 64 99 05/18/23 16:34 60 98 05/18/23 16:03 18 05/18/23 16:03 36.8 C 18 05/18/23 16:29 71 98 05/18/23 16:30 60 125/71 05/18/23 16:24 64 99 05/18/23 16:19 55 L 99 05/18/23 16:15 63 130/82 05/18/23 16:14 66 98 05/18/23 16:11 57 L 118/63 05/18/23 16:09 61 97 05/18/23 16:04 58 L 98 05/18/23 16:05 58 L 116/62 05/18/23 16:01 57 L 119/62 05/18/23 15:59 67 99 05/18/23 15:56 59 L 122/62 05/18/23 15:54 63 97 05/18/23 15:49 97 05/18/23 15:49 72 05/18/23 15:49 61 112/58 L 05/18/23 15:47 64 110/60 05/18/23 15:45 68 118/62 05/18/23 15:44 68 98 05/18/23 15:43 68 113/60 05/18/23 15:41 60 111/56 L 05/18/23 15:39 70 111/56 L 96 05/18/23 15:37 74 131/77 05/18/23 15:35 57 L 126/71 05/18/23 15:34 99 05/18/23 14:12 74 132/80 05/18/23 12:56 65 107/56 L 05/18/23 12:27 62 129/67 05/18/23 11:02 18 05/18/23 11:02 36.8 C 18 05/18/23 11:03 67 123/77 Coding Level of Care Code None Diagnoses
--- NOTE | 2023-05-19 01:34 | Anesthesia Procedure Note ---
Date of Service May 19, 2023 Anesthesia Epidural Re-Dose Vital Signs Temp Pulse Resp BP Pulse Ox 100.0 F H 95 H 20 114/59 L 94 05/19/23 01:00 05/19/23 01:31 05/19/23 01:00 05/19/23 01:31 05/19/23 01:31 Notes Pain Intensity: 10 Dilatation (cm): 9.0 Effacement (%): 100 Called by nursing to evaluate epidural as the patient is having increased pain. The epidural was re-dosed with the following medications (all medications via epidural route) after negative aspiration of the epidural catheter for CSF/HEME. 0.125% Bupivacaine (8ml) with 100 mcg Fentanyl After Epidural Re-Dose Mental Status: alert / awake / arousable Pain: improving with treatment Airway Patency, RR, SpO2: stable & adequate BP & HR: stable & adequate
[2023-05-19] MEDS: LACTATED RINGER'S 1,000 ML IV PRN (01:55)
[2023-05-19] MEDS ORDERED: GENTAMICIN CONSULT ACTIVE PRN ×2 (02:53→04:49)
--- NOTE | 2023-05-19 02:57 | Labor Progress Brief Note ---
Date of Service May 19, 2023 Subjective Patient now with complete dilation, +1 station. FHT 160s, mod aly, + accels. No decels. [place] Q2-3 Temp 39.4, will treat for chorioamnionitis - ampicillin 2g Q6h, gentamicin 5mg/kg x 24h. Assessment & Plan Admission and Anticipated Discharge Date Admission Date: May 18, 2023 Results & Data Vital Signs (Past 12 Hours) Vital Signs Temp Pulse Resp BP Pulse Ox 05/19/23 02:50 93 H 95 05/19/23 02:45 39.4 C H 98 H 18 95 05/19/23 02:43 99 H 123/64 05/19/23 02:40 98 H 97 05/19/23 02:35 84 97 05/19/23 02:30 88 18 95 05/19/23 02:28 82 113/55 L 05/19/23 02:25 82 94 05/19/23 02:20 82 94 05/19/23 02:15 78 94 05/19/23 02:13 78 113/54 L 05/19/23 02:10 85 97 05/19/23 02:05 87 94 05/19/23 02:00 86 18 96 05/19/23 01:59 85 118/59 L 05/19/23 01:55 91 H 97 05/19/23 01:50 98 H 94 05/19/23 01:45 101 H 94 05/19/23 01:42 92 H 119/58 L 05/19/23 01:40 95 05/19/23 01:40 89 05/19/23 01:40 88 124/61 05/19/23 01:38 99 H 116/58 L 05/19/23 01:35 100 H 95 05/19/23 01:36 87 117/59 L 05/19/23 01:34 88 128/62 05/19/23 01:32 88 119/60 05/19/23 01:31 94 05/19/23 01:31 95 H 05/19/23 01:30 95 H 18 96 05/19/23 01:31 94 H 114/59 L 05/19/23 01:25 99 H 97 05/19/23 01:20 98 H 95 05/19/23 01:15 96 05/19/23 01:15 101 H 05/19/23 01:15 93 H 120/64 05/19/23 01:10 86 96 05/19/23 01:05 90 95 05/19/23 01:00 37.8 C H 79 20 133/63 96 05/19/23 00:55 74 100 05/19/23 00:50 76 96 05/19/23 00:45 78 109/59 L 98 05/19/23 00:40 74 97 05/19/23 00:35 68 98 05/19/23 00:30 71 18 108/57 L 97 05/19/23 00:25 65 99 05/19/23 00:20 66 98 05/19/23 00:16 65 133/58 L 05/19/23 00:15 67 98 05/19/23 00:00 18 05/19/23 00:00 18 05/19/23 00:10 69 99 05/19/23 00:11 78 92 05/19/23 00:05 64 99 05/19/23 00:00 99 05/19/23 00:00 66 05/19/23 00:00 66 122/59 L 05/18/23 23:55 64 99 05/18/23 23:50 65 99 05/18/23 23:46 68 124/58 L 05/18/23 23:45 74 100 05/18/23 23:40 76 100 05/18/23 23:35 70 98 05/18/23 23:30 72 18 98 05/18/23 23:31 76 109/58 L 05/18/23 23:25 74 98 05/18/23 23:20 74 99 05/18/23 23:17 73 111/57 L 05/18/23 23:15 77 99 05/18/23 23:10 69 98 05/18/23 23:05 73 99 05/18/23 23:00 36.8 C 78 18 97 05/18/23 23:01 73 106/51 L 05/18/23 22:55 82 97 05/18/23 22:50 83 94 05/18/23 22:46 81 94 05/18/23 22:45 82 126/56 L 94 05/18/23 22:40 79 92 05/18/23 22:30 18 05/18/23 22:30 18 05/18/23 22:35 80 92 05/18/23 22:30 93 05/18/23 22:30 78 05/18/23 22:30 75 117/57 L 05/18/23 22:25 79 92 05/18/23 22:20 77 92 05/18/23 22:15 72 92 05/18/23 22:16 72 112/55 L 05/18/23 22:10 75 92 05/18/23 22:05 74 92 05/18/23 22:00 69 18 115/56 L 92 05/18/23 21:55 74 92 05/18/23 21:50 73 92 05/18/23 21:45 72 116/55 L 93 05/18/23 21:40 70 93 05/18/23 21:35 69 96 05/18/23 21:34 68 94 05/18/23 21:31 18 05/18/23 21:31 18 05/18/23 21:30 75 106/57 L 05/18/23 21:29 70 94 05/18/23 21:24 71 96 05/18/23 21:19 72 95 05/18/23 21:14 73 97 05/18/23 21:15 73 118/55 L 05/18/23 21:09 70 99 05/18/23 21:04 65 97 05/18/23 21:00 37.0 C 68 18 117/58 L 05/18/23 20:59 70 100 05/18/23 20:54 67 98 05/18/23 20:49 61 99 05/18/23 20:46 63 115/56 L 05/18/23 20:44 61 99 05/18/23 20:39 65 100 05/18/23 20:34 60 98 05/18/23 20:30 71 18 111/57 L 05/18/23 20:29 68 97 05/18/23 20:24 68 100 05/18/23 20:19 69 98 05/18/23 20:16 65 111/62 05/18/23 20:14 66 98 05/18/23 20:09 72 100 05/18/23 20:00 18 05/18/23 20:00 18 05/18/23 20:04 69 100 05/18/23 20:02 75 124/60 05/18/23 19:59 84 99 05/18/23 19:56 91 H 90 05/18/23 19:54 78 100 05/18/23 19:49 81 100 05/18/23 19:44 88 100 05/18/23 19:45 92 H 110/55 L 05/18/23 19:39 79 100 05/18/23 19:34 83 99 05/18/23 19:29 87 98 05/18/23 19:30 92 H 18 120/73 05/18/23 19:24 86 97 05/18/23 19:19 96 H 98 05/18/23 19:14 86 98 05/18/23 19:15 80 121/70 05/18/23 19:00 18 05/18/23 19:00 36.7 C 18 05/18/23 19:09 80 100 05/18/23 19:04 70 100 05/18/23 19:02 70 128/74 05/18/23 18:59 67 100 05/18/23 18:54 65 100 05/18/23 18:49 64 100 05/18/23 18:44 68 100 05/18/23 18:45 65 125/69 05/18/23 18:39 75 100 05/18/23 18:35 18 05/18/23 18:35 36.7 C 18 05/18/23 18:34 69 100 05/18/23 18:31 57 L 115/60 05/18/23 18:29 72 97 05/18/23 18:24 65 98 05/18/23 18:19 58 L 99 05/18/23 18:16 59 L 112/55 L 05/18/23 18:14 70 97 05/18/23 18:09 59 L 99 05/18/23 18:04 66 99 05/18/23 18:02 18 05/18/23 18:02 18 05/18/23 18:00 56 L 114/57 L 05/18/23 17:59 62 100 05/18/23 17:54 69 100 05/18/23 17:33 18 05/18/23 17:33 36.7 C 18 05/18/23 16:32 18 05/18/23 16:32 18 05/18/23 17:03 18 05/18/23 17:03 18 05/18/23 17:49 61 100 05/18/23 17:46 61 117/58 L 05/18/23 17:44 59 L 99 05/18/23 17:39 55 L 100 05/18/23 17:34 59 L 100 05/18/23 17:29 58 L 99 05/18/23 17:30 57 L 110/60 05/18/23 17:24 58 L 97 05/18/23 17:19 59 L 97 05/18/23 17:16 63 111/64 05/18/23 17:14 80 98 05/18/23 17:09 57 L 96 05/18/23 17:04 61 98 05/18/23 16:59 58 L 98 05/18/23 17:00 59 L 120/71 05/18/23 16:54 64 98 05/18/23 16:49 64 99 05/18/23 16:46 60 115/65 05/18/23 16:44 60 98 05/18/23 16:39 64 99 05/18/23 16:34 60 98 05/18/23 16:03 18 05/18/23 16:03 36.8 C 18 05/18/23 16:29 71 98 05/18/23 16:30 60 125/71 05/18/23 16:24 64 99 05/18/23 16:19 55 L 99 05/18/23 16:15 63 130/82 05/18/23 16:14 66 98 05/18/23 16:11 57 L 118/63 05/18/23 16:09 61 97 05/18/23 16:04 58 L 98 05/18/23 16:05 58 L 116/62 05/18/23 16:01 57 L 119/62 05/18/23 15:59 67 99 05/18/23 15:56 59 L 122/62 05/18/23 15:54 63 97 05/18/23 15:49 97 05/18/23 15:49 72 05/18/23 15:49 61 112/58 L 05/18/23 15:47 64 110/60 05/18/23 15:45 68 118/62 05/18/23 15:44 68 98 05/18/23 15:43 68 113/60 05/18/23 15:41 60 111/56 L 05/18/23 15:39 70 111/56 L 96 05/18/23 15:37 74 131/77 05/18/23 15:35 57 L 126/71 05/18/23 15:34 99 Coding Level of Care Code None Diagnoses
[2023-05-19] MEDS ORDERED: DEXTROSE 5% IV ONE (03:15)
[2023-05-19] MEDS ORDERED: GENTAMICIN SULFATE IV ONE (03:15)
[2023-05-19] MEDS: AMPICILLIN 2,000 MG in 0.9 % SODIUM CHLORIDE 100 ML IV SCH ×4 (03:18→21:53)
[2023-05-19] MEDS: OXYTOCIN 30 UNITS/500 ML BAG IV PRN ×2 (04:20→05:02)
[2023-05-19] MEDS ORDERED: bisacodyL 10 MG SUPP PR PRN ×2 (04:35→04:49)
[2023-05-19] MEDS ORDERED: HYDROCORTISONE ACETATE 25 MG SUPP PR PRN ×2 (04:35→04:49)
[2023-05-19] MEDS ORDERED: OXYTOCIN 30 UNITS/500 ML BAG IV PRN (04:35)
[2023-05-19] MEDS ORDERED: BENZOCAINE 20% SPRY 85 APPLN/85 GM CAN EXT PRN ×2 (04:35→04:49)
[2023-05-19] MEDS ORDERED: oxyCODONE/ACETAMINOPHEN 5mg/325mg TAB PO PRN ×2 (04:35→04:49)
[2023-05-19] MEDS ORDERED: METHYLERGONOVINE MALEATE 0.2 MG/ML AMP IM ONE (04:35)
[2023-05-19] MEDS ORDERED: ACETAMINOPHEN 325 MG TAB PO PRN ×2 (04:35→04:49)
[2023-05-19] MEDS ORDERED: IBUPROFEN 600 MG TAB PO PRN (04:35)
[2023-05-19] MEDS ORDERED: DIPHTHERIA/TETANUS/PERTUSSIS Vaccine (Tdap, Age 7+yrs) 0.5mL SYR/VL IM ONE (04:35)
--- NOTE | 2023-05-19 04:40 | Delivery Summary ---
Vaginal Delivery Summary Date of Service May 19, 2023 Vaginal Delivery Summary and 2nd Degree LAC Vaginal Delivery Summary: Pre-delivery diagnoses: 27yo @ 40 3/, IOL for postdates, epilepsy, chorioamnionitis Post-delivery diagnoses: same Procedure: spontaneous vaginal delivery, repair of 2nd degree perineal laceration Surgeon: Tami Wilson DO Complications: none Findings: Viable male . Apgars: 8/9 . Weight pending, please see nursery records Estimated blood loss: 400ml Description of delivery: The patient presented for induction of labor for postdates, underwent choudhary bulb for cervical ripening, then pitocin and AROM for meconium-stained fluid. She had developed tachycardia and maternal fever, therefore was diagnosed with chorioamnionitis and given ampicillin and gentamicin. She progressed to complete with epidural. She then began to push. She spontaneously vaginally delivered a viable from the cephalic presentation. The head delivered in SHANKAR position. The anterior shoulder delivered, followed by the posterior shoulder, followed by the body. No nuchal cord. The baby was placed on mother's abdomen and a spontaneous cry was heard. Delayed cord clamping was employed, and the cord was doubly clamped and cut. Cord blood was obtained. The placenta was delivered spontaneously intact with a 3-vessel cord. The uterus and vagina were swept of clots and debris. IV pitocin was given. The uterus was initially atonic, but with massage and a dose of methergine and continued pitocin, it became firm. The cervix, vagina, and perineum were inspected and a 2nd degree laceration was noted. Repair with 3-0 Vicryl. Excellent hemostasis was observed. The mother and baby are recovering in stable and good condition in the room. Sponge, needle and instrument counts were correct x 2. Tami Wilson DO [facility] V[facility]inal Delivery Charge Vaginal Delivery Codes: 58232 global code for the antepartum, delivery, and post- Delivery Type Details: and 2nd Degree LAC
[2023-05-19] MEDS: IBUPROFEN 600 MG TAB PO PRN ×3 (05:03→21:34)
[2023-05-19] MEDS ORDERED: AMPICILLIN SOD 1 GM VIAL IV SCH (06:00)
[2023-05-19] MEDS ORDERED: DOCUSATE SODIUM 100 MG CAP PO SCH (08:00)
[2023-05-19] MEDS ORDERED: PRENATAL VITAMIN 1 TAB PO SCH (08:00)
[2023-05-19] MEDS: PRENATAL VITAMIN 1 TAB PO SCH (09:02)
[2023-05-19] MEDS: levETIRAcetam 500 MG TAB PO SCH ×2 (09:03→21:35)
[2023-05-19] MEDS: DOCUSATE SODIUM 100 MG CAP PO SCH ×2 (09:03→21:34)
--- NOTE | 2023-05-19 12:04 | Anesthesia Procedure Note ---
Date of Service May 19, 2023 Anesthesia Post Epidural Note Vital Signs Vital Signs: Temp Pulse Resp BP Pulse Ox O2 Del Method 36.4 C L 71 16 114/69 95 Room Air 05/19/23 11:00 05/19/23 11:00 05/19/23 11:00 05/19/23 11:00 05/19/23 11:00 05/19/23 11:00 Pain Intensity Perineal: Pain Intensity: 8 Bilateral Abdomen: Pain Intensity: 10 Notes Mental Status: alert / awake / arousable and participated in evaluation Nausea / Vomiting: adequately controlled Pain: adequately controlled Airway Patency, RR, SpO2: stable & adequate BP & HR: stable & adequate Hydration State: stable & adequate Neuraxial Anesthesia: was administered and sensory block is resolving Anesthetic Complications: no major complications apparent Epidural: Removed without complications and With tip intact
[2023-05-20] MEDS: IBUPROFEN 600 MG TAB PO PRN ×2 (03:58→08:50)
[2023-05-20] MEDS ORDERED: GENTAMICIN SULFATE IV ONE (04:00)
[2023-05-20] MEDS ORDERED: DEXTROSE 5% IV ONE (04:00)
--- NOTE | 2023-05-20 07:29 | Obstetrical Progress Note ---
Date of Service May 20, 2023 Assessment & Plan (1) (spontaneous vaginal delivery): Plan: recovering well plan for discharge today (2) Asthma: Plan: albuterol PRN (3) Epilepsy: Plan: Keppra 1g BID (4) Mitral regurgitation: Plan: No concerns per cardiology Plan 27 yo at 40w2d with PMHx epilepsy on keppra, asthma, mitral regurg, thyromegaly here for induction of labor. Admission and Anticipated Discharge Date Admission Date: May 18, 2023 Supervising Physician Co-Signing Physician Notes Resident Physician Supervision Note: I interviewed and examined the patient. Discussed with Dr. Mcgraw and agree with findings and plan as documented in the note. Any exceptions or clarifications are listed here: Doing well. No temps since delivery. Had antibiotics for 24 hours. Plan d/c home. Instructions given. Documented By: Debo Charles MD, FACOG Subjective 27 yo PMHx epilepsy on keppra, asthma, mitral regurg, thyromegaly PPD 1 Ambulation: ambulating normally Voiding: no voiding problems Passing Gas:: Yes Diet Tolerance:: regular diet Lochia:: Small Feeding Type:: breast feeding Current Pain Level minimal Resting comfortably this AM. Denies CROWELL, CP, SOB, N/V/D, LE edema or pain Review of Systems Review of Systems: reviewed, per HPI Physical Exam Physical Exam: General: patient resting comfortably, NAD, non-toxic in appearance, AA&O x 4, answers questions appropriately. Skin: warm, dry, intact HEENT: NC/AT, anicteric sclera, conjunctiva without injection, moist mucus membranes. Heart: +S1/S2, regular, no m/r/g Lungs: equal air entry bilaterally, no rales/rhonchi/wheezes Abd: +BS, soft, NT/ND, uterine fundus firm at umbilicus Ext: warm, no clubbing/cyanosis or edema, Wero's neg Neuro: nonfocal, patient AA&O x 4, speech intact, no facial droop, moving all extremities on command. Results & Data Vital Signs (Past 12 Hours) Vital Signs Temp Pulse Resp BP Pulse Ox O2 Del Method 05/20/23 04:00 36.4 C L 84 18 102/66 96 Room Air 05/19/23 23:20 36.4 C L 88 18 105/64 97 Room Air 05/19/23 21:25 36.5 C 92 H 20 109/67 97 Room Air Resident Activity Tracking Resident Involvement: Resident Care Provided Care Provided: Adult Hospital Medicine (3) Epilepsy Epilepsy type: unspecified Intractability: not intractable Status epilepticus: without status epilepticus Qualified Code(s): G40.909 - Epilepsy, unspecified, not intractable, without status epilepticus
[2023-05-20] MEDS: PRENATAL VITAMIN 1 TAB PO SCH (08:50)
[2023-05-20] MEDS: DOCUSATE SODIUM 100 MG CAP PO SCH (08:50)
[2023-05-20] MEDS: levETIRAcetam 500 MG TAB PO SCH (10:56)
[2023-05-20] MEDS ORDERED: bisacodyL 5 MG TABEC PO SCH ×2 (20:00)
== END 2023-05-20 17:15 | disposition home or self-care (01) | DRG 805 ==
LOC: 4S1 07:38 → 4E2 05-19 06:57

== ENCOUNTER 2025-01-18 11:46 | Observation (INO) ==
[2025-01-18 11:58] VITALS: BP 120/72; PULSE 82
[2025-01-18 12:25] VITALS: RESP 18; TEMP 98.2
--- NOTE | 2025-01-18 12:50 | Obstetrical Progress Note ---
Date of Service January 18, 2025 Assessment & Plan (1) 36 weeks gestation of : (2) Dichorionic diamniotic twin gestation: Plan nst reactive x 2 Admission and Anticipated Discharge Date Admission Date: January 18, 2025 Subjective 36 wks di/di twin . Physical Exam Genitourinary: nst reactive x 2 Results & Data Vital Signs (Past 12 Hours) Vital Signs Temp Pulse Resp BP 01/18/25 12:15 98.2 F 82 18 120/72 01/18/25 11:57 82 120/72 PG Care Time/CCT Total # of Minutes Spent Total Time Spent with Patient: Total time spent is greater than 50% in coordination of care (as documented) at patient's floor/unit and/or counseling patient: Coding Level of Care Code None Diagnoses 36 weeks gestation of Z3A.36 Dichorionic diamniotic twin gestation O30.041 Trimester: first trimester CPT Codes Misx Procedure Codes - 06199 Twin NST: 46495 Twin NST ([id number]) 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
== END 2025-01-18 13:35 | disposition home or self-care (01) | DRG 833 ==
LOC: INTOOBSV 11:46 → 4S1 11:46

== ENCOUNTER 2025-02-02 05:24 | Inpatient (IN) ==
--- NOTE | 2025-01-29 10:57 | Anesthesiology Consultation ---
Date of Service January 29, 2025 Assessment & Plan (1) Encounter for pre-operative examination: - Infectious disease screening: Per assessment on 01/29/25- No known recent infectious disease contacts or current infectious disease symptoms. - Patient request: Ob/patient discussing/coordinating delivery guest/visitor specifications. 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 initiated History Surgery Operation Date: 02/02/25 08:50 Proposed Procedures p Section (Delivery of Baby Through Abdominal Incision) - Milly Sotelo MD, FACOG Height/Weight Height: 5 ft 5 in Weight: 89.811 kg Allergies Allergy/AdvReac Type Severity Reaction Status Date / Time Tetanus Vaccines and Toxoid Allergy Severe Shortness Verified 01/29/25 10:53 of breath Sulfa (Sulfonamide Allergy Unknown Hives Verified 01/29/25 10:53 Antibiotics) Medications Home Medications Medication Instructions Recorded Confirmed Last Taken prenat.vits,terry,[id number]-[id number] 1 tab PO DAILY 10/15/22 01/29/25 01/17/25 ferrous sulfate 134 mg (27 mg 134 mg PO DAILY 07/07/24 01/29/25 01/17/25 iron) tablet folic acid 1 mg tablet 1 mg PO DAILY 07/07/24 01/29/25 01/17/25 albuterol sulfate 90 mcg/actuation 2 inh inhalation QID PRN shortness 08/16/24 01/29/25 Unknown aerosol inhaler of breath or wheezing #1 g breast pump #1 ea 08/28/24 01/25/25 Unknown breast pump #1 ea 08/28/24 01/25/25 Unknown levetiracetam 1,000 mg tablet 1,000 mg PO BID 30 days #60 tabs 08/28/24 01/29/25 01/17/25 ondansetron HCl 4 mg tablet 4 mg PO Q6H PRN nausea and 12/25/24 01/29/25 Unknown vomiting #20 tabs Past Medical History Medical History Asthma Depression Hx Enlargement of thyroid Multiple thyroid nodules Per records depression Hx Seizure disorder Last seizure 2021 Past Family History Family History Aunt Thyroid cancer Breast cancer great Mother Diabetes Thyroid disease Asthma Thyroid cancer Uncle Schizoaffective disorder Grandmother (Maternal) Thyroid cancer Other Hypercholesterolemia Hypertension Denies family history of Ovarian cancer Prostate cancer Myocardial infarction Colorectal cancer Stroke Past Surgical History Surgical History S/P wisdom tooth extraction Social History Smoking Status: Never smoker Do You Dip or Chew Tobacco: No Hx Alcohol Use: Yes alcohol intake frequency: other Alcohol Intake Frequency Comment: only occasional in the past Hx Substance Use: No substance use type: does not use Lab Results Anesthesia Preop Results Results Anesthesia Widget: Hgb 11.8 g/dl (12.0-16.0) L 11/30/24 Hct 35.8 % (37.0-47.0) L 11/30/24 POC Glucose 87 mg/dl (70-99) 01/10/25 Urine Color Yellow 11/30/24 Urine Appearance Clear (Clear) 11/30/24 Urine pH 7.0 (4.5-7.5) 11/30/24 Urine Specific Jenison 1.014 (1.000-1.030) 11/30/24 Urine Protein Negative (Negative) 11/30/24 Urine Glucose (UA) Negative (Negative) 11/30/24 Urine Ketones Trace (Negative) H 11/30/24 Urine Blood Negative (Negative) 11/30/24 Urine Nitrite Negative (Negative) 11/30/24 Urine Bilirubin Negative (Negative) 11/30/24 Urine Urobilinogen Negative (Negative) 11/30/24 Urine Leukocyte Esterase Negative (Negative) 11/30/24 Testing Laboratory Results Urine culture (11/30/24): Probable skin sylvia Echocardiogram Date: 02/15/23 "This was essentially a normal study." EF 60-65%. LV wall motion is normal. Trace MR.
--- NOTE | 2025-02-01 16:58 | History & Physical Report ---
Date of Service February 01, 2025 Assessment & Plan (1) Dichorionic diamniotic twin gestation: Plan: DI-DI twin gestation at 38 weeks presents for primary LTCS because of discordant growth the procedure and it's risks were reviewed with the patient and all questions answered to her satisfaction and she is willing to proceed. History of Present Illness Primary Care Provider: NO PCP Patient is a 29 yo female EDC of 02/14/25 who presents at 38 1/7 weeks for primary LTCS for Di-Di twin gestation. growth had been concordant until last growth scan and now twin B is 82%tile and Twin A is 24%tile with 18.5% discordancy. testing has been reassuring otherwise. also complicated by seizure disorder controlled on Keppra- no seizure activity during the . GBS- negative Allergies Allergy/AdvReac Type Severity Reaction Status Date / Time Tetanus Vaccines and Toxoid Allergy Severe Shortness Verified 02/01/25 13:52 of breath Sulfa (Sulfonamide Allergy Unknown Hives Verified 02/01/25 13:52 Antibiotics) Home Medications Medication Instructions Recorded Confirmed Type prenat.vits,terry,rkd-jlnh-mzmol 1 tab PO DAILY 10/15/22 02/01/25 History ferrous sulfate 134 mg (27 mg 134 mg PO DAILY 07/07/24 02/01/25 History iron) tablet folic acid 1 mg tablet 1 mg PO DAILY 07/07/24 02/01/25 History albuterol sulfate 90 mcg/actuation 2 inh inhalation QID PRN shortness 08/16/24 02/01/25 Rx aerosol inhaler of breath or wheezing #1 g breast pump #1 ea 08/28/24 02/01/25 Rx breast pump #1 ea 08/28/24 02/01/25 Rx levetiracetam 1,000 mg tablet 1,000 mg PO BID 30 days #60 tabs 08/28/24 02/01/25 Rx ondansetron HCl 4 mg tablet 4 mg PO Q6H PRN nausea and 12/25/24 02/01/25 Rx vomiting #20 tabs Patient History Medical History Asthma Depression Hx Enlargement of thyroid Multiple thyroid nodules Per records depression Hx Seizure disorder Last seizure 2021 Surgical History S/P wisdom tooth extraction Family History Aunt Thyroid cancer Breast cancer great Mother Diabetes Thyroid disease Asthma Thyroid cancer Uncle Schizoaffective disorder Grandmother (Maternal) Thyroid cancer Other Hypercholesterolemia Hypertension Denies family history of Ovarian cancer Prostate cancer Myocardial infarction Colorectal cancer Stroke Social History (Updated 01/02/25 @ 10:20 by Clover Joe RN) Smoking Status: Never smoker Second Hand Exposure: No; Do You Dip or Chew Tobacco: No; Hx Alcohol Use: Yes Hx Substance Use: No Preferred Language: Maltese Communication Ability: Effective Visual Impairment: No Limitations Hearing Ability: Normal Supervisor [employer] Required: No Beliefs That Will Affect Care: None marital status: marital status details: Meka Garcia (25) [phone] / - Carlos Ibrahim [phone] Current Living Situation: Spouse and Family Current Living Situation Comment: lives with spouse, child, dog, rabbit current occupational status: employed 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 [employer] Feels Safe at Home: Yes Childhood Exposure to Second-Hand Smoke: No Diet: regular Dental Care, Regularly: Yes Physical Activity Frequency: 5-6 Times per Week Physical Activity Frequency Comment: running Seatbelt Use: always Sunscreen Use: Yes Assistive Devices: Glasses Review of Systems All systems reviewed & are unremarkable except as noted in HPI & below Physical Exam Constitutional: WD/WN, vitals as above Respiratory: normal respiratory effort, lungs clear to auscultation Cardiovascular: RRR, no murmur, no edema Psychiatric: A+Ox3, euthymic affect Genitourinary: OB Exam Abdomen: + fundal height (40 cm), + heart tones (times 2) and + vertex (vertex/vertex) Coding Level of Care Code 76034 INT INP/OBS CARE 1/40MIN Diagnoses Dichorionic diamniotic twin gestation O30.041 Trimester: first trimester (1) Dichorionic diamniotic twin gestation Trimester: first trimester Qualified Code(s): O30.041 - Twin , dichorionic/diamniotic, first trimester
[2025-02-02] MEDS: LACTATED RINGER'S 1,000 ML IV SCH ×2 (05:45→06:43)
[2025-02-02 05:58] LABS: Hematocrit (blood only) 35.3 % (37.0-47.0); Hemoglobin 12.1 g/dl (12.0-16.0); Mean Corpuscular Hemoglobin 29.9 pg (25.0-34.0); Mean Corpuscular Hgb Conc 34.3 g/dL (32.0-36.0); Mean Corpuscular Volume 87.2 fL (80.0-100.0); Mean Platelet Volume 10.8 fL (9.4-12.4); Platelet Count 189 K/uL (130-400); RDW Coefficient of Variation 13.7 % (11.5-14.5); RDW Standard Deviation 43.8 fL (36.4-46.3); Red Blood Count 4.05 M/uL (4.20-5.40); White Blood Count 5.59 K/ul (4.8-10.8)
[2025-02-02] MEDS: ACETAMINOPHEN 500 MG TAB PO SCH (06:10)
[2025-02-02] MEDS ORDERED: PHENYLEPHRINE HCL 25 MG/250 ML NSS IV ONE (06:44)
[2025-02-02] MEDS ORDERED: fentaNYL citrate PF 100 MCG/2 ML VIAL ONE (06:44)
[2025-02-02] MEDS ORDERED: ONDANSETRON INJ 2 MG/ML 2 ML VIAL ONE (06:44)
[2025-02-02] MEDS ORDERED: MoRPHine SULFATE PF 1 MG/ML 10 ML AMP/VIAL ONE (06:44)
[2025-02-02] MEDS ORDERED: OXYTOCIN 10 UNITS/ML VIAL ONE ×2 (06:44→07:52)
[2025-02-02] MEDS ORDERED: DEXAMETHASONE SOD INJ 4 MG/ML VIAL ONE (06:44)
[2025-02-02] MEDS ORDERED: MoRPHine SULFATE 2 MG/ML CARP IV PRN (06:58)
[2025-02-02] MEDS ORDERED: HYDROmorphone INJ 0.5 MG/0.5 ML SYR IV PRN (06:58)
[2025-02-02] MEDS ORDERED: NALOXONE HCL 0.08 MG in SYRINGE 1.8 ML IV PRN (06:58)
[2025-02-02] MEDS ORDERED: ePHEDrine sulfate 50 MG/ML AMP IV PRN (06:58)
[2025-02-02] MEDS ORDERED: NALOXONE HCL 0.4 MG/1 ML VIAL/CARP IV PRN (06:58)
[2025-02-02] MEDS ORDERED: ONDANSETRON INJ 2 MG/ML 2 ML VIAL IV PRN (06:58)
[2025-02-02] MEDS ORDERED: PROMETHAZINE 6.25 MG/50.25 ML BAG IV PRN (06:58)
[2025-02-02] MEDS ORDERED: NALBUPHINE HCL INJ 10 MG/ML AMP IV PRN (06:58)
[2025-02-02] MEDS ORDERED: diphenhydrAMINE 50 MG/ML VIAL IV PRN (06:58)
[2025-02-02] MEDS ORDERED: LACTATED RINGER'S 500 ML IV PRN (06:58)
[2025-02-02] MEDS ORDERED: NALOXONE HCL 1 MG in SODIUM CHLORIDE 0.9% 1,000 ML IV PRN (06:58)
[2025-02-02] MEDS ORDERED: DC INTRASPINAL MORPHINE SCH (07:00)
[2025-02-02] MEDS ORDERED: NO NARCOTICS OR SEDATIVES SCH (07:00)
[2025-02-02] MEDS: CITRIC ACID/SODIUM CITRATE 15 ML UDC PO SCH (07:15)
--- NOTE | 2025-02-02 07:22 | History & Physical Bridge Note ---
Date of Service February 02, 2025 History & Physical Bridge Note I have examined the patient, reviewed the History & Physical and in the interval since the performance of the History & Physical I have noted the following changes of clinical significance: no changes noted
[2025-02-02] MEDS: ceFAZolin 2000MG 2,000 MG/15 ML SYR IV STA (07:33)
[2025-02-02] MEDS: OXYTOCIN 10 UNITS/ML 10ML VIAL IM ONE (07:54)
--- NOTE | 2025-02-02 08:37 | Post Operative Brief Note ---
Immediate Post Op Note Date of Surgery February 02, 2025 Pre & Post Diagnosis Operation Date: 02/02/25 07:30 Pre-Op Diagnosis: 1. Term twin 2. Desires primary c/section Post-Op Diagnosis: Same I identified the patient and participated in the time-out.: Yes Procedure Operation Date: 02/02/25 07:30 Actual Procedures p Section with the of live female infants Baby A at 0759, Baby B at 0800. - Milly Sotelo MD, FACOG Surgeon Milly Sotelo MD, FACOG Churn Operator Margarine Alexa Donald MD Quantitative Blood Loss (QBL) 397 Findings Consistent with Post-Op Diagnosis gravid uterus consistent with twin gestation at term bilateral tubes and ovaries are normal Specimens Specimen Description: A: placenta-exam B: Cord blood A C: Cord Blood B Drains Choudhary Catheter (choudhary cath placed after spinal; clear yellow urine noted upon in sertion; patient tolerated procedure) Anesthesia Type Spinal Complications none Disposition Accompanied Patient To Recovery: Yes Disposition: L&D
[2025-02-02] MEDS ORDERED: BENZOCAINE 20% SPRY 85 APPLN/85 GM CAN EXT PRN (08:47)
[2025-02-02] MEDS ORDERED: DIPHTHER/TETAN/PERTUS Vaccine (Tdap, Adol/Adult) 0.5mL IM ONE (08:47)
[2025-02-02] MEDS ORDERED: CALCIUM CARBONATE 500 MG CHEWABLE TAB PO PRN (08:47)
[2025-02-02] MEDS ORDERED: HYDROCORTISONE ACETATE 25 MG SUPP PR PRN (08:47)
[2025-02-02] MEDS ORDERED: SENNA 8.6 MG TAB PO PRN (08:47)
[2025-02-02] MEDS ORDERED: MAGNESIUM HYDROXIDE SUSP 30 ML UDC PO PRN (08:47)
[2025-02-02] MEDS: OXYTOCIN 20 UNITS/LR 1,002 ML IV SCH (08:55)
[2025-02-02] MEDS ORDERED: ALBUTEROL HFA 8 GM INHALER INH PRN (08:57)
[2025-02-02] MEDS: levETIRAcetam 500 MG TAB PO SCH (09:00)
--- NOTE | 2025-02-02 09:24 | Operative Report ---
Post Operative Report Pre & Post Diagnosis Operation Date: 02/02/25 07:30 Pre-Op Diagnosis: 1. Term twin 2. Desires primary c/section Post-Op Diagnosis: Same I identified the patient and participated in the time-out.: Yes Procedure Operation Date: 02/02/25 07:30 Actual Procedures p Section with the of live female infants Baby A at 0759, Baby B at 0800. - Milly Sotelo MD, FACOG Surgeon Milly Sotelo MD, FACOG Order Planner Alexa Donald MD Quantitative Blood Loss (QBL) 397 Findings Consistent with Post-Op Diagnosis Specimens placenta Drains Schaffer catheter to straight drainage. Clear urine at the end of the case Anesthesia Type Spinal Complications none Disposition Accompanied Patient To Recovery: Yes Disposition: L&D Indications Patient is a 29-year-old 2 para 1-0-0-1 female EDC of 02/14/2025 who presents at 38-2/7 weeks with Di amniotic dichorionic twin gestation. She is scheduled for primary low-transverse section. testing has been reassuring through the . There is a discordancy between the twins of 18.5% with twin B being the larger . Description of Procedure Have the patient received adequate subarachnoid block she was prepped and draped in usual sterile fashion. A low transverse skin incision was made with a scalpel and carried to the fascia with the same scalpel. The fascial incision was then extended with Varma scissors, the edges were grasped with Irma clamps and the underlying rectus muscle was bluntly sharply dissected off of the overlying fascia. The rectus muscles were bluntly divided along the midline and the peritoneum also entered bluntly. The bladder was taken down off the anterior surface of the uterus and placed behind the bladder blade. The lower uterine segment was entered with a scalpel and extended transversely. Membranes were ruptured during the entry into the uterus. Fluid was clear. Twin A was delivered from the vertex presentation with moderate fundal pressure. Cord was clamped with Kellys and cut. She was vigorous crying and moving all 4 limbs. Twin B is also vertex. Membranes were ruptured for clear fluid. She was delivered with moderate fundal pressure. She was also vigorous crying and moving all 4 limbs. Cord was clamped with Irma clamps and then cut. Cord blood was obtained on both. Both infants were handed off to the nursery staff and Dr. Chavez who was in attendance his medical certification specialist. The placenta was then expressed intact with a three-vessel cord. The uterus exteriorized and covered with a clean lap sponge. Bleeding was controlled with fundal massage and dilute Pitocin. Because it was a twin gestation, IM Pitocin at 10 units was also injected into the fundus of the uterus. To control bleeding. Uterine cavity was explored and found be free of any placental tissue or membranes. Uterus was closed in 2 layers in a running locking imbricating fashion with 0 Monocryl. Single bleeding site on the right side of the incision was controlled with a [id number] stitch of the same. Hemostasis was noted to be excellent at this point. The posterior cul-de-sac was suctioned for small amount of fluid and blood. The uterine incision was examined once more continue to have excellent hemostasis. The gutters were explored and were free of clot or fluid. A moderate-sized clot was removed from the anterior cul-de-sac. The rectus muscle were brought together on the midline with individual stitches of 0 Monocryl. The fascia was closed in a running fashion with 4-0 Vicryl after irrigating the subcutaneous layer. Patient tolerated procedure well was stable upon arrival back in labor and delivery. I attest to the content of the Intraoperative Record and any orders documented therein. Any exceptions are noted below. OB Procedure Charges 31659
[2025-02-02] MEDS: KETOROLAC 30 MG/ML VIAL IV SCH (09:55)
--- NOTE | 2025-02-02 11:06 | Anesthesiology Progress Note ---
Date of Service February 02, 2025 Anesthesia Post Procedure Vital Signs Vital Signs: Temp Pulse Resp BP Pulse Ox 02/02/25 11:02 65 97 02/02/25 10:57 61 98 02/02/25 10:55 67 120/66 02/02/25 10:52 59 L 98 02/02/25 10:47 59 L 98 02/02/25 10:45 60 125/61 02/02/25 10:42 76 98 02/02/25 10:37 64 98 02/02/25 10:35 65 132/60 02/02/25 10:32 61 99 02/02/25 10:30 16 02/02/25 10:27 58 L 99 02/02/25 10:25 58 L 123/86 02/02/25 10:22 66 100 02/02/25 10:17 62 99 02/02/25 10:15 126/77 02/02/25 10:12 60 99 02/02/25 10:07 60 99 02/02/25 10:05 50 L 121/72 02/02/25 10:02 55 L 118/70 99 02/02/25 10:00 16 02/02/25 10:00 36.4 C L 16 02/02/25 09:57 57 L 98 02/02/25 09:52 60 98 02/02/25 09:50 36.4 C L 16 02/02/25 09:47 58 L 98 02/02/25 09:45 63 107/67 02/02/25 09:42 61 98 02/02/25 09:40 16 02/02/25 09:37 59 L 97 02/02/25 09:35 63 127/56 L 02/02/25 09:32 63 98 02/02/25 09:30 36.6 C 16 02/02/25 09:27 57 L 115/58 L 97 02/02/25 09:22 59 L 98 02/02/25 09:20 36.7 C 16 02/02/25 09:17 62 97 02/02/25 09:12 57 L 98 02/02/25 09:10 16 02/02/25 09:07 51 L 98 02/02/25 09:05 50 L 91/53 L 02/02/25 09:02 59 L 95 02/02/25 09:00 36.5 C 16 02/02/25 08:57 53 L 99 02/02/25 08:55 55 L 110/55 L 02/02/25 08:52 56 L 99 02/02/25 08:49 58 L 91 02/02/25 08:47 58 L 99 02/02/25 08:43 54 L 119/58 L 02/02/25 08:42 56 L 100 02/02/25 07:33 18 02/02/25 07:33 18 02/02/25 07:15 18 02/02/25 07:15 18 02/02/25 07:14 70 131/79 02/02/25 05:45 18 02/02/25 05:45 36.7 C 72 18 117/71 02/02/25 05:41 18 Pain Intensity Lower Abdomen: Pain Intensity: 2 Transfer of Care Handoff Completed per policy Notes Mental Status: alert / awake / arousable and participated in evaluation Patient Amnestic to Procedure: Yes Nausea / Vomiting: adequately controlled Pain: adequately controlled Airway Patency, RR, SpO2: stable & adequate BP & HR: stable & adequate Hydration State: stable & adequate Anesthetic Complications: no major complications apparent and Pt Satisfied with anesthetic care
[2025-02-02] MEDS: miSOPROStoL 200 MCG TAB ONE (11:39)
[2025-02-02] MEDS: SIMETHICONE 80 MG CHEW PO SCH (14:28)
[2025-02-02] MEDS: ACETAMINOPHEN 325 MG TAB PO SCH (15:11)
[2025-02-02] MEDS: DOCUSATE SODIUM 100 MG CAP PO SCH (21:42)
[2025-02-02 21:56] VITALS: RESP 16
[2025-02-03] MEDS ORDERED: HYDROmorphone INJ 0.5 MG/0.5 ML SYR IV PRN (01:00)
[2025-02-03] MEDS ORDERED: oxyCODONE HCL IR 5 MG TAB (IMMEDIATE RELEASE) PO PRN (01:00)
[2025-02-03] MEDS ORDERED: diphenhydrAMINE Capsule 25 MG CAP PO PRN (01:00)
[2025-02-03] MEDS ORDERED: PROMETHAZINE 12.5 MG/50.5 ML BAG IV PRN (01:00)
[2025-02-03] MEDS ORDERED: diphenhydrAMINE 50 MG/ML VIAL IV PRN (01:00)
[2025-02-03] MEDS ORDERED: ONDANSETRON INJ 2 MG/ML 2 ML VIAL IV PRN (01:00)
--- NOTE | 2025-02-03 07:01 | Obstetrical Progress Note ---
Date of Service February 03, 2025 Assessment & Plan (1) Encounter for assessment: Plan: Patient is POD 1 s/p pLTCS and doing well - Eating well, voiding well, ambulating well - vitals reviewed and within normal limits - pain well controlled with analgesics - OOB, ambulation, diet progression as tolerated - Blood type: O+, GBS neg, rubella immune - Plan to discharge tomorrow - After discharge, 6 week follow up with [facility] OBGYN Admission and Anticipated Discharge Date Admission Date: February 02, 2025 Supervising Physician Co-Signing Physician Notes Resident Physician Supervision Note: I interviewed and examined the patient. Discussed with Dr. Waldrop and agree with findings and plan as documented in the note. Any exceptions or clarifications are listed here: [None] Documented By: Milly Sotelo MD, FACOG Subjective 29 yo post-operative day 1 s/p pLTCS Ambulation: ambulating normally Voiding: no voiding problems Passing Gas:: Yes Diet Tolerance:: regular diet Lochia:: Small Feeding Type:: breast feeding Current Pain Level:0/10 Resting comfortably this AM in NAD. Denies CROWELL, CP, SOB, N/V/D, LE pain/swelling. Physical Exam Physical Exam: General: patient resting comfortably, NAD, non-toxic in appearance, answers questions appropriately. Skin: warm, dry, intact HEENT: NC/AT, anicteric sclera, conjunctiva without injection, moist mucus membranes. Heart: +S1/S2, regular, no m/r/g Lungs: equal air entry bilaterally, no rales/rhonchi/wheezes Abd: +BS, soft, NT/ND, uterine fundus firm at umbilicus, caesarean incision C/D/I. Ext: warm, no clubbing/cyanosis or edema Neuro: nonfocal, speech intact, no facial droop, moving all extremities. Results & Data Vital Signs (Past 12 Hours) Vital Signs Temp Pulse Resp BP Pulse Ox O2 Del Method O2 Del Method 02/03/25 03:00 36.7 C 62 16 99/62 L 96 Room Air 02/03/25 01:04 16 97 02/02/25 23:58 16 96 02/02/25 23:45 36.7 C 64 16 116/75 97 Room Air 02/02/25 23:03 16 96 02/02/25 21:55 16 97 02/02/25 21:00 18 97 02/02/25 20:00 Room Air 02/02/25 20:00 Room Air 02/02/25 20:00 36.8 C 64 18 120/60 98 Room Air 02/02/25 19:59 18 96 02/02/25 19:05 18 97 Resident Activity Tracking Resident Involvement: Resident Care Provided Care Provided: OB Delivery
[2025-02-03 07:26] LABS: Basophils # (auto) 0.06 K/uL (0.00-0.20); Basophils % (auto) 0.6 %; Eosinophils # (auto) 0.05 K/uL (0.00-0.50); Eosinophils % (auto) 0.5 %; Hematocrit (blood only) 34.9 % (37.0-47.0); Hemoglobin 11.7 g/dl (12.0-16.0); Immature Granulocytes # (auto) 0.13 K/uL (0.01-0.20); Immature Granulocytes % (auto) 1.4 %; Lymphocytes # (auto) 1.49 K/uL (1.20-3.40); Lymphocytes % (auto) 15.6 %; Mean Corpuscular Hemoglobin 29.7 pg (25.0-34.0); Mean Corpuscular Hgb Conc 33.5 g/dL (32.0-36.0); Mean Corpuscular Volume 88.6 fL (80.0-100.0); Mean Platelet Volume 11.3 fL (9.4-12.4); Monocytes # (auto) 0.77 K/uL (0.11-0.59); Monocytes % (auto) 8.1 %; Neutrophils # (auto) 7.04 K/uL (1.40-6.50); Neutrophils % (auto) 73.8 %; Platelet Count 172 K/uL (130-400); RDW Coefficient of Variation 13.6 % (11.5-14.5); Red Blood Count 3.94 M/uL (4.20-5.40); White Blood Count 9.54 K/ul (4.8-10.8)
[2025-02-03] MEDS ORDERED: KETOROLAC 30 MG/ML VIAL IV PRN (08:47)
[2025-02-03] MEDS: FERROUS SULFATE 325 MG TAB PO SCH (08:52)
[2025-02-03] MEDS: PRENATAL VITAMIN 1 TAB PO SCH (08:52)
[2025-02-03] MEDS: IBUPROFEN 600 MG TAB PO SCH (08:53)
[2025-02-03] MEDS: SODIUM CHLORIDE 0.9% 1,000 ML IV SCH (18:15)
[2025-02-03] MEDS: MoRPHine SULFATE PF 1 MG/ML 10 ML AMP/VIAL INT SPINAL ONE (18:15)
[2025-02-03] MEDS: OXYTOCIN 20 UNITS/1002ML LR IV ONE (18:16)
[2025-02-03] MEDS: LACTATED RINGER'S 1,000 ML IV SCH (18:17)
[2025-02-03] MEDS: bisacodyL 5 MG TABEC PO SCH (21:18)
[2025-02-04 07:15] LABS: Hematocrit (blood only) 35.7 % (37.0-47.0); Hemoglobin 11.8 g/dl (12.0-16.0)
--- NOTE | 2025-02-04 07:50 | Obstetrical Progress Note ---
Date of Service February 04, 2025 Assessment & Plan (1) Encounter for assessment: 29 yo POD 2 from pCS for twins, doing well -Meeting all pp milestones -Rh+/rubella immune/ -f/u 6 weeks for appt, desires dc home today Subjective Ambulation: ambulating normally Voiding: no voiding problems Passing Gas:: Yes Diet Tolerance:: regular diet Lochia:: Small Feeding Type:: breast feeding Pain well managed with medication Review of Systems Denies fevers, chills, n/v, CROWELL, CP, SOB Physical Exam Constitutional WD/WN, vitals as above no acute distress Respiratory normal respiratory effort, lungs clear to auscultation Cardiovascular RRR, no murmur, no edema Gastrointestinal (Abdomen) Percussion/Palpation: abdomen soft; abdomen nontender fundus firm at umbilicus and NT, incision c/d/i Musculoskeletal BLE symmetric, nonerythematous, nontender Results & Data Vital Signs (Past 12 Hours) Vital Signs Temp Pulse Resp BP Pulse Ox O2 Del Method 02/04/25 00:10 97.7 F 60 16 120/79 97 Room Air 02/03/25 21:00 97.7 F 74 16 125/78 98 Room Air
[2025-02-04] MEDS: IBUPROFEN 600 MG TAB PO PRN (08:37)
[2025-02-04] MEDS ORDERED: bisacodyL 10 MG SUPP PR PRN (08:47)
[2025-02-04 10:28] VITALS: BP 130/79; TEMP 97.5; O2SAT 98
[2025-02-04 10:30] VITALS: PULSE 60
[2025-02-04] MEDS ORDERED: ACETAMINOPHEN 325 MG TAB PO PRN (14:47)
--- NOTE | 2025-02-05 16:47 | Discharge Summary ---
Date of Service February 05, 2025 Admission HPI Per Admitting Provider Patient is a 29 yo female EDC of [birth year] who presents at 38 1/7 weeks for primary LTCS for Di-Di twin gestation. growth had been concordant until last growth scan and now twin B is 82%tile and Twin A is 24%tile with 18.5% discordancy. testing has been reassuring otherwise. also complicated by seizure disorder controlled on Keppra- no seizure activity during the . GBS- negative Admission Exam (Per Admitting) Constitutional WD/WN, vitals as above Respiratory normal respiratory effort, lungs clear to auscultation Cardiovascular RRR, no murmur, no edema Psychiatric A+Ox3, euthymic affect Genitourinary OB Exam Abdomen: + fundal height (40 cm), + heart tones (times 2) and + vertex (vertex/vertex) Discharge Data Consultations 02/02/25 05:33 Consult Anesthesiology Stat Procedures Performed Operation Date: 02/02/25 07:30 Actual Procedures p Section with the of live female infants Baby A at 0759, Baby B at 0800. - Milly Sotelo MD, [facility] Course (1) Encounter for assessment: 29 yo POD 2 from pCS for twins, doing well -Meeting all pp milestones -Rh+/rubella immune/ -f/u 6 weeks for appt, desires dc home today Discharge Plan Discharge Items Patient Disposition: Home - Self-Care Reason For Visit: Dihorioinic Diamonitic Twin Discharge Diagnosis: s/p section Condition on Discharge: Good Activity: Per Instructions section Non-emergency contact: Therapeutic Dietitian Call non-emergency contact if: you have any medication questions, your pain is not controlled, your temperature is above 101, your wound has increased redness, your wound has increased drainage and your wound pain has increased Follow-up/Referrals: PCP,NO [Primary Care Provider] - Diet: Regular Addtl Attending Provider Instructions: ACTIVITY RECOMMENDATIONS: * Gradual return to full activity over the next 2-3 weeks. * No lifting - nothing heavier than baby over the next 2-3 weeks. * Do not engage in vigorous exercise, sexual activity or sports until cleared by your physician. * Do not drive or operate any motorized equipment until cleared by your p hysician. * You may shower/bathe daily. MEDICATIONS: For discomfort or pain, you may use Acetaminophen (Tylenol), Ibuprofen (Advil), or Naproxen (Aleve) following the package directions. For constipation you may use Colace following the package directions. BREAST CARE: If you are not breast feeding: * Wear a supportive bra 24 hours a day for one to two weeks. * Avoid stimulating your breasts and nipples as much as possible during the first few weeks after delivery. * When taking a shower, have the warm water hit your back, not breasts. * When your breasts feel full, apply ice packs. Usually three to four times a day helps ease the discomfort. * Take a mild pain medication (Tylenol / Motrin) when you are uncomfortable. If breast feeding: * Use breast milk to lubricate nipples. Lansinoh cream may be used for sore nipples. You do not need to remove cream prior to breast feeding. If using a different brand of cream, check the label for directions regarding removal of cream prior to nursing. * Wear a supportive bra. * If having problems with breasts or breast feeding, call a healthcare risk control consultant or your health care provider. SPECIAL CARE INSTRUCTIONS: When you are discharged from the hospital, it is important for you to follow the instructions listed below: * During the first week at home, you should be able to care for yourself and your baby. In addition, the usual light household activities are encouraged. * Limit your activities to the way you feel. Do not try to clean the house or move furniture. Be sensible. * If you actively engage in sports and have done so up until the time of your delivery, you may resume these activities as soon as you feel able. This may take up to one month or even longer. Use good judgment. * Continue to take your vitamins for at least six weeks after the of your baby. * Your diet need not be limited unless you were on a special diet before your delivery. Breast-feeding mothers need around 2500 calories per day and at least 64-80 ounces of fluid per day (8 to 10 glasses). * You should eat foods from the four major food groups. Crash diets or fad diets are to be avoided. Eating lean meats, fresh fruits and vegetables, low-fat dairy products, high fiber foods and a regular exercise program, will help you get back to your pre- weight without putting your health at risk. * Constipation is sometimes a problem after delivery. Take a mild laxative as needed. If breast feeding, Milk of Magnesia is acceptable to use. You may use a suppository or Fleets enema. * A daily shower or tub bath is suggested. Wash incision daily with warm soapy water and pat dry. It doesn't need to be covered unless drainage is presen t. * A bloody vaginal discharge will usually continue until around four weeks . A small amount of bleeding may continue for as long as six weeks. Vaginal discharge changes from the bright red bleeding after delivery to pink then brownish and finally yellowish-pink before becoming white and disappearing. * Bleeding may increase with activity. Your first period may come in 4-8 weeks. If you are breast feeding, your period may be delayed even longer. * [place] (sex) can begin whenever both you and your partner feel comfortable and do not have any form of genital infection. It is recommended that you wait at least six weeks for internal and external healing to occur. If you have questions, please talk to your health care practitioner. A condom should be used to prevent infection and . * Foreplay, gentle intercourse and lubrication is very important the first several times to prevent pain. A water-based lubricant such as K-Y jelly or Astroglide may be used. * If you have RH negative blood and your baby is RH positive, you will receive RHOGAM by injection prior to discharge. The nurse will give you a card to keep with you that has the date and place that you received RHOGAM after delivery. * During your care, you had a Rubella screen done to check for the presence of rubella antibodies in your blood. If your test was negative, you will receive a Rubella vaccine prior to discharge. This vaccine may cause a fever, soreness at the injection site and flu-like symptoms. If these symptoms persist, notify your health care practitioner. is not advised for one month after a Rubella vaccine. * Verbalizes understanding of car seat law as reviewed with patient nursing. * Car Seat hand-out given and reviewed with patient by nursing. * Shaken baby information reviewed with patient by nursing. Call you doctor if: * Heavy bleeding (saturating several pads an hour) or passing clots the size of your fist. * A fever >101 degrees F (38.3 degrees C) on two occasions four hours apart and/or chills. * Unusual pain in the pelvic or vaginal areas. * Call the doctor for any increased redness, drainage or swelling around the incision and any pain unrelieved by prescribed pain medication. * "Baby Blues" lasting longer than two weeks. If you have any questions or concerns, call your health care practitioner at . FOLLOW UP VISIT: * Please call the office at to schedule a 6 week examination. It is important you keep this appointment. It is important for you to make arrangements for either yearly or twice yearly check-ups thereafter. Pending Studies at Discharge: Yes Stand-Alone Forms: My [facility] [employer], Smoking Cessation Medications and DC Order Prescriptions: Continued albuterol sulfate 90 mcg/actuation HFA aerosol inhaler 2 inh INH QID PRN (Reason: shortness of breath or wheezing) Qty: 1 0RF (DME) breast pump Device See Rx Instructions miscellaneous .MEDSUPPLY Qty: 1 0RF Rx Instructions: As directed (DME) breast pump Device See Rx Instructions miscellaneous .MEDSUPPLY Qty: 1 0RF Rx Instructions: As directed levetiracetam 1,000 mg tablet 1,000 mg PO BID 30 Days Qty: 60 11RF ondansetron HCl 4 mg tablet 4 mg PO Q6H PRN (Reason: nausea and vomiting) Qty: 20 0RF prenat.vits,terry,vds-iqgz-ovkxe Tablet 1 tab PO DAILY folic acid 1 mg tablet 1 mg PO DAILY ferrous sulfate 134 mg (27 mg iron) tablet 134 mg PO DAILY No Action oxycodone 5 mg tablet 5 - 10 mg PO Q3H PRN (Reason: pain) Qty: 14 0RF Rx Instructions: Take 1-2 tabs as needed for pain every 3 hours Discharge Orders: Discharge Order (Routine); Ordered 02/04/25 Ordered By: Mel Camejo/Other Patient Handouts: Understanding Blues, Understanding Psychosis, DVT in , Understanding Depression Admission Data Admit Date/Time: 02/02/25 05:24 Attending Provider: Milly Sotelo Admit Provider: Milly Sotelo Primary Care Provider: PCP,NO Other Providers: Zhang Waldrop; Mel Lopez Other Interventions: Discharge Summary Assessment (RN) Last Done: 02/04/25 13:31 Supervising Physician Co-Signing Physician Notes Resident Physician Supervision Note: I interviewed and examined the patient. Discussed with Dr. Waldrop and agree with findings and plan as documented in the note. Any exceptions or clarifications are listed here: [None] Documented By: Milly Sotelo MD, FACOG Coding Level of Care Code 32890 IN/OBS DISCH 30 MIN/LESS Diagnoses Encounter for assessment Z39.2
== END 2025-02-04 13:10 | disposition home or self-care (01) | DRG 787 ==
LOC: 4S1 05:24 → EDSTATUS 08:50 → 4E2 11:20
DX: Z37.2 Twins, both liveborn; Z79.899 Other long term (current) drug therapy; G40.909 Epilepsy, unspecified, not intractable, without status epilepticus; Z88.2 Allergy status to sulfonamides; O99.354 Diseases of the nervous system complicating childbirth; O30.043 Twin pregnancy, dichorionic/diamniotic, third trimester; Z3A.38 38 weeks gestation of pregnancy; Z88.7 Allergy status to serum and vaccine